=== PATIENT | male | born 1980 | race Caucasian/White ===

== ENCOUNTER 2021-07-17 15:09 | Emergency (ER) | payer BC, SELFPAY ==
[2021-07-17 15:24] VITALS: BP 136/100; PULSE 89; RESP 16; TEMP 36.6; O2SAT 98
--- NOTE | 2021-07-17 16:08 | ED.URI ---
HPI - URI/Sore Throat General Chief Complaint: Upper Respiratory Infection Stated Complaint: Sore Throat,Fatigue,Body Aches Time Seen by Provider: 07/17/21 16:00 Source: patient and RN notes reviewed Mode of arrival: ambulatory Limitations: no limitations History of Present Illness HPI Narrative: Patient presents today with a 2-day history of fatigue, body aches, nausea, diarrhea, with a 4-day history of sore throat. Denies fever, cough, congestion or rhinorrhea. Currently rates his pain 5/10 and has been taking ibuprofen with some relief. MD elicited complaint: sore throat Related Data Home Medications Medication Instructions Recorded Confirmed No Home Medications 07/17/21 07/17/21 Allergies Allergy/AdvReac Type Severity Reaction Status Date / Time No Known Allergies Allergy Mild Verified 07/17/21 16:25 Review of Systems Review of Systems: CONSTITUTIONAL: Denies fever, chills, or sweats.+ Body aches, fatigue EYES: Denies visual changes, redness, or discharge. ENT: Denies rhinorrhea, congestion, or otalgia.+ Sore throat CARDIOVASCULAR: Denies chest pain, palpitations, or edema. RESPIRATORY: Denies cough or dyspnea. GASTROINTESTINAL: Denies abdominal pain, vomiting.+ Nausea, diarrhea GENITOURINARY: Denies dysuria or hematuria. SKIN: Denies rash, itching, or wounds. MUSCULOSKELETAL: Denies back pain, joint pain, or myalgia. NEUROLOGIC: Denies headache, numbness, tingling, or weakness. PSYCH: Denies depression or anxiety. [facility] Family History Family History Mother Patient's mother is in good health Father Patient's father is in good health Sibling Patient's brother is in good health Grandparent Family history of malignant neoplasm of uterus, Onset Age: 83 Family history of dementia, Onset Age: 81 Social History Social History Smoking status: Never smoker Second hand tobacco smoke exposure: Yes Alcohol intake: current Substance use: never Substance use type: does not use Comments At time of signature, I have reviewed and agree with nursing past medical, surgical, social and family history unless otherwise noted. Please see nursing chart for further information. There is no relevant family history pertinent to the presenting complaint Exam Narrative: GENERAL: Ill-appearing, well-nourished, and in no acute distress. HEAD: Normocephalic, atraumatic. EYES: EOMI. No redness or drainage. Conjunctivae normal. ENT: Mucous membranes pink and moist. Nares clear. No rhinorrhea. TMs normal bilaterally. Throat mildly erythematous without edema or exudate. Uvula midline. NECK: Normal AROM. Supple. No lymphadenopathy. CHEST: No respiratory distress. Clear to auscultation. HEART: Regular rate and rhythm. No murmur appreciated. Normal peripheral pulses. EXTREMITIES: Normal range of motion. No edema. SKIN: Warm, dry, no rash. Capillary refill normal. Normal skin turgor. NEURO: No focal deficits. Alert and oriented x3. Gait steady. PSYCH: Normal affect. No signs of depression or anxiety. Course Course Level of Care: Express Care Visit Vital Signs Vital signs: Vital Signs Temperature 97.8 F 07/17/21 15:24 Pulse Rate 89 07/17/21 15:24 Respiratory Rate 16 07/17/21 15:24 Blood Pressure 136/100 H 07/17/21 15:24 Pulse Oximetry 98 07/17/21 15:24 Temperature 97.8 F 07/17/21 15:24 Pulse Rate 89 07/17/21 15:24 Respiratory Rate 16 07/17/21 15:24 Blood Pressure 136/100 H 07/17/21 15:24 Pulse Oximetry 98 07/17/21 15:24 Reviewed. Pt has been instructed to follow up with his PCP regarding his elevated blood pressure today. MDM - URI/Sore Throat Differential Diagnosis Differential diagnosis: Likely upper respiratory infection, viral infection, influenza, pharyngitis and other (Strep throat, influenza, COVID-19) Lab Data Attestation: I reviewed
== END 2021-07-17 16:38 | disposition home or self-care (01) ==
PROVIDERS: Emergency Provider Nurse Practitioner; PCP Physician Assistant
DX: B34.9 Viral infection, unspecified (principal); Z20.822 Contact with and (suspected) exposure to COVID-19
CPT/HCPCS: 87081; 87426; 87804; 87880; 99203; C9803; G0463

== ENCOUNTER → 2021-07-18 10:32 | Outpatient (CLI) | payer BC, SELFPAY ==
--- NOTE | ~2021-07-18 | XR_ITS ---
XR chest 2V DATE: 07/18/2021 10:48 INDICATION: Cough TECHNIQUE: 2 views COMPARISON: 06/2017 two-view chest FINDINGS: Heart size is within normal limits. No hilar or mediastinal enlargement. No pulmonary infil trate or consolidation, pleural effusion or pulmonary vascular congestion or pneumothorax is detected . Degenerative spurring of the thoracic spine. IMPRESSION: No active cardiopulmonary disease Reviewed, dictated and finalized at location A. [facility]' [employer]ENSATION MAGIST[employer]
== END ==
PROVIDERS: PCP Internal Medicine; Visit Provider Physician Assistant
DX: R05.9 Cough, unspecified (principal); R07.9 Chest pain, unspecified
CPT/HCPCS: 71046

== ENCOUNTER 2023-01-18 10:32 | Outpatient (CLI) | payer BC, SELFPAY ==
--- NOTE | ~2023-01-18 | US_ITS ---
EXAMINATION: US soft tissue lower back DATE: 01/18/2023 11:03 INDICATION: Localized swelling, mass and lump to the left of the coccyx TECHNIQUE: Multiple grayscale and Doppler ultrasound images of the region of concern left of the cocc yx were obtained. COMPARISON: None FINDINGS: 2.7 x 2.2 x 2.0 cm heterogeneously iso to hypoechoic lesion in the subcutaneous fat at the region of concern. Vascular flow seen within some vessel at the periphery of the lesion with no internal vascul ar flow on color Doppler. IMPRESSION: 1. 2.7 cm heterogeneous subcutaneous lesion at the region of concern, unclear whether solid neoplasm or complex cystic lesion. Correlate with clinical history and consider further evaluation with either ultrasound-guided biopsy or pre and postcontrast MRI. Reviewed, dictated and finalized at location L. IMPRESSION: 1. 2.7 cm heterogeneous subcutaneous lesion at the region of concern, unclear w hether solid neoplasm or complex cystic lesion. Correlate with clinical history and consider further evaluation with either ultrasound-guided biopsy or pre an d postcontrast MRI.
== END 2023-01-18 10:33 | disposition home or self-care (01) ==
PROVIDERS: PCP Physician Assistant; Visit Provider Physician Assistant
DX: L98.9 Disorder of the skin and subcutaneous tissue, unspecified (principal)
CPT/HCPCS: 76705

== ENCOUNTER 2023-01-22 15:11 | Emergency (ER) | payer BC, SELFPAY ==
[2023-01-22] VITALS (18 sets, daily range): BP systolic 103–146; BP diastolic 58–88; PULSE 73–131; RESP 20; TEMP 37.2; O2SAT 77–100
--- NOTE | 2023-01-22 17:09 | ED.SKABFB ---
HPI - Skin/Abscess/Foreign Bdy General Chief complaint: Skin/Abscess/Foreign Body Stated complaint: abscess/fever Time Seen by Provider: 01/22/23 15:31 History of Present Illness HPI narrative: Patient is a 42-year-old male presenting with a growth on his back. Patient states that he has had a bump on his lower back that turned red several weeks ago. Patient went to urgent care and was treated with Keflex and Bactrim. States that he has been taking these as prescribed. He had an ultrasound here a couple of days ago which showed a soft tissue lesion. Patient continues to have redness and swelling in this area. States that he has been having fevers up to 102 ?F at home. States that he has been having a headache as well as some body aches. Denies chest pain or shortness of breath. No cough. No vomiting or diarrhea. Denies further complaints. Related Data Home Medications Medication Instructions Recorded Confirmed esomeprazole magnesium 20 mg 20 mg PO DAILY 09/21/21 09/22/21 tablet,delayed release (Nexium 24HR) Allergies Allergy/AdvReac Type Severity Reaction Status Date / Time No Known Allergies Allergy Mild Verified 01/22/23 15:26 Review of Systems Review of Systems: All systems reviewed & are unremarkable except as noted in HPI and below PMFSH Family History Family History Mother Patient's mother is in good health Father Patient's father is in good health Sibling Patient's brother is in good health Grandparent Family history of malignant neoplasm of uterus, Onset Age: 83 Family history of dementia, Onset Age: 81 Social History Social History Smoking status: Never smoker Second hand tobacco smoke exposure: Yes Alcohol intake: current Substance use: never Substance use type: does not use Exam Narrative: GENERAL: Well-appearing, well-nourished, and in no acute distress. Pleasant and cooperative HEAD: Normocephalic, atraumatic. EYES: PERRLA and EOMI. ENT: Nares clear, no rhinorrhea or epistaxis. Mucous membranes moist. NECK: Supple. CHEST: Clear to auscultation. No respiratory distress. HEART: Regular rate and rhythm ABDOMEN: Soft, nontender, nondistended BACK: 2x2cm lesion left lower back with overlying erythema, concerning for abscess, no surrounding cellulitis, no crepitus, no midline lesions or tenderness EXTREMITIES: Normal range of motion. No edema. SKIN: Warm, dry, no rash. NEURO: No focal deficits. Alert and oriented x3. PSYCH: Normal mood and affect. Course Vital Signs Vital signs: Vital Signs Temperature 98.9 F 01/22/23 15:12 Pulse Rate 131 H 01/22/23 15:12 Respiratory Rate 20 01/22/23 15:12 Blood Pressure 146/88 H 01/22/23 15:12 Pulse Oximetry 98 01/22/23 15:12 Temperature 98.9 F 01/22/23 15:12 Pulse Rate 92 01/22/23 20:14 Respiratory Rate 20 01/22/23 15:12 Blood Pressure 120/63 01/22/23 20:14 Pulse Oximetry 100 01/22/23 20:14 MDM - Skin/Abscess/Foreign Bdy MDM Narrative Medical decision making narrative: Patient is a 42-year-old male presenting with fevers, body aches, and a red lesion on his left lower back. Ultrasound from 4 days ago reveals a complex cystic lesion vs solid neoplasm. Recommend ultrasound guided biopsy vs MRI. Spoke with Dr. Chacon - pt can f/u in clinic for biopsy. Pt needs to finish the keflex/bactrim and then will start him on augmentin BID x10d given the recurrence of erythema and possible fevers at home. Blood work is reassuring. No leukocytosis. Lactic acid is normal. Discussed the work-up and advised that he call Dr. Chacon in the morning for close follow-up. Patient and his voiced understanding and are agreeable with this plan. Strict return precautions given. Discharged in stable condition. Differential Diagnosis Differential diagnosis: Likely abscess of skin or subcuta
[2023-01-22] MEDS: SODIUM CHLORIDE 0.9% IV 1,000 ML 999 ML IV CONT (17:25)
[2023-01-22] MEDS: KETOROLAC 15 MG/ML VIAL (*BKC) IV PUSH (17:25)
[2023-01-22 17:36] LABS: Eosinophils Percent Auto 0.2 % (0-4.4); Hematocrit 40.8 % (42.0-52.0); Hemoglobin 13.8 g/dL (14.0-18.0); Immature Granulocyte Absolute 0.01 K/mm3 (0.00-0.031); Immature Granulocyte Percent A 0.2 % (0-0.5); Immature Platelet Fraction Pct 5.4 % (0.9-11.2); Lymphocytes Absolute Auto 0.36 K/mm3 (0.9-3.2); Lymphocytes Percent Auto 8.8 % (18.3-44.2); Mean Corpuscular HGB Conc 33.8 g/dl (32-36); Mean Corpuscular Hemoglobin 31.8 pg (26-34); Mean Platelet Volume 10.5 fl (7.4-10.4); Monocytes Absolute Auto 0.4 K/mm3 (0.1-0.6); Neutrophils Absolute Auto 3.3 K/mm3 (1.3-6.7); Neutrophils Percent Auto 81.8 % (45.5-73.1); Platelet Count Result 151 k/mm3 (150-375); Red Blood Count 4.34 M/mm3 (4.6-6.20); Red Cell Distribution Width 11.9 % (11.5-14.5); White Blood Count 4.1 K/mm3 (4.5-10.0)
[2023-01-22 17:44] LABS: Alanine Aminotransferase 32 U/L (6-50); Albumin Level 4.9 g/dL (3.5-5.1); Alkaline Phosphatase 61 U/L (38-126); Anion Gap 8 mmol/L (8-16); Aspartate Amino Transferase 36 U/L (17-59); Bilirubin,Total 0.7 mg/dL (0.2-1.3); Blood Urea Nitrogen 10 mg/dL (9-20); Calcium 8.8 mg/dL (8.4-10.2); Carbon Dioxide 28 mmol/L (22-30); Chloride 97 mmol/L (98-107); Estimated CRCL calculation 117 ml/min; Estimated Glomerular Filt Rate > 60; Glucose 106 mg/dL (65-110); Lactic Acid Reflex 1.2 mmol/L (0.7-2.0); Potassium 4.1 mmol/L (3.4-5.0); Sodium 133 mmol/L (137-145)
== END 2023-01-22 20:14 | disposition home or self-care (01) ==
PROVIDERS: Emergency Provider Emergency Medicine; PCP Physician Assistant
DX: L03.312 Cellulitis of back [any part except buttock and flank] (principal)
CPT/HCPCS: 36415; 80053; 83605; 85025; 85055; 87040; 96361; 96374; 99284; J1885; J7030

== ENCOUNTER 2023-02-07 04:31 | Day surgery (SDC) | payer BC, SELFPAY ==
[2023-02-05 11:30] VITALS: BMI 31.6
--- NOTE | 2023-02-05 11:34 | PC.NURSE ---
Report to the Outpatient Waiting Room, entrance under the green pavilion located off [facility], at time 1200 on date 02/07/23. Planned Procedure Time: 1400. Time changes happen often and if your time is changed the preop area will call you the afternoon before. - You and your visitor will be asked to self-screen and do not enter if you have any COVID symptoms. - A mask is optional within the hospital at this time. Patients may have clear liquids (water, carbonated beverages, clear teas, apple juice) until 3 hours prior to surgery with a maximum of 20 ounces. - No food from midnight until time of surgery Take the following medications with a SIP of water the morning of surgery: NONE DO NOT STOP ANY OF YOUR OTHER PRESCRIPTION MEDICATIONS PRIOR TO SURGERY ?EXCEPT THE FOLLOWING Medications to discontinue per physician: N/A Date to take last dose: N/A Please no make-up, nail sami, hairspray, perfume, deodorant, or body powder the day of surgery. No jewelry (including any body piercings) or valuables the day of surgery, leave them at home. Please take a shower or bath the night before, or the morning of, surgery with an antibacterial soap. Wear comfortable, loose fitting clothing. - Jewelry must be removed prior to entering the operating room. Rings and piercings that are not removed may be cut off. - The hospital will not accept responsibility for valuables. - Please leave all valuables, including medications, at home the day of surgery. If you are going home after surgery, a licensed stock driver must drive you home. - NO public transportation without another adult if you receive anesthesia. - We recommend that an adult stay with you for 24 hours following discharge. - We also recommend that you do not drive, make important decision, drink alcoholic beverages, or take any drugs that were not prescribed by your health care provider for at least 24 hours after your discharge time. Follow any additional instructions given to you from your surgeon. If you or anyone in your household have experienced Covid symptoms in the past week, please notify your surgeon or the nurse liaison at the phone number below for possible testing. Telephone instructions given to PT - CHENTE GALAVIZ and asked if any additional questions and then verbalized understanding. Patient advised to call surgeon office or pre surgery nurse liaison [phone] if any additional questions.
--- NOTE | 2023-02-06 09:57 | P.PNAN_ITS ---
Anes - Initial Pre Proc Eval Procedure: Operation Date: 02/07/23 12:30 Proposed Procedures p Incision and Drainage Infected Cyst Lower Back - Kvng Chacon MD Date/Time: 02/06/23 09:57 Surgeon: Kvng Chacon MD Pre Op Diagnosis: abcess back Patient Data Age: 42 Gender: M Height: 1.83 m Weight: 105.7 kg Allergies Allergy/AdvReac Type Severity Reaction Status Date / Time No Known Allergies Allergy Mild Verified 02/08/23 08:39 Home Medications Medication Instructions Recorded Confirmed Type esomeprazole magnesium 20 mg 20 mg PO DAILY 09/21/21 02/07/23 History tablet,delayed release (Nexium 24HR) oxycodone-acetaminophen 5 mg-325 0.5 - 1 tablet PO Q6H PRN pain #10 02/07/23 Rx mg tablet tabs Patient hx anesthesia problems: none Family hx anesthesia problems: none Results Review: All pre-operative results and documents have been reviewed as part of the pre- operative evaluation. [facility] Past Medical History Medical History GERD (gastroesophageal reflux disease) Family History Family History Mother Patient's mother is in good health Father Patient's father is in good health Sibling Patient's brother is in good health Grandparent Family history of malignant neoplasm of uterus, Onset Age: 83 Family history of dementia, Onset Age: 81 Social History Social History Smoking status: Never smoker Second hand tobacco smoke exposure: Yes Alcohol intake: current Drinks per week: 3 Substance use: never Substance use type: does not use Current Housing: Decline to Answer Concerned About Future Housing: Decline to Answer Difficulty Paying Gas/Electric Bills: Decline to Answer Difficulty Paying for Meds: Decline to Answer Currently Unemployed: Decline to Answer Education: Decline to Answer Difficulty w/ Childcare or Family Care: Decline to Answer Living arrangements: with family Spiritual care concerns: No Anes - Eval Final PreProcedure Day of Procedure 02/06/23 09:57 Patient weight: obese Heart: regular rate and rhythm Lungs: clear to auscultation Airway: Mallampati scale class II Neurological: alert and oriented Last oral intake: >/= 8 hours ASA classification: II Emergent: no Anesthetic plan: proceed Anesthesia type and monitoring: general GIVS and standard monitoring Results Review: All pre-operative results and documents have been reviewed as part of the pre- operative evaluation. Informed Consent: The patient's anesthetic plan and its attendant risks and benefits were discussed with the patient/family/POA. Questions were solicited and answers provided to the satisfaction of the patient/family/POA.
[2023-02-07 08:57] VITALS: BP 117/62; PULSE 84; RESP 16; TEMP 36.3; O2SAT 100
[2023-02-07] MEDS: LACTATED RINGERS 1,000 ML 30 ML IV CONT (09:21)
--- NOTE | 2023-02-07 09:21 | WPDHPUPDATE1 ---
History and Physical Update Update Date/Time: 02/07/23 09:21 History and Physical has been reviewed, including an updated exam of the patient. There are NO changes in the patient's condition. Risks, benefits, and alternatives have been discussed and questions answered. Patient agrees to proceed with procedure.
[2023-02-07] MEDS: ceFAZolin 2 GM/D5W 50 ML 2 GM/50 ML BAG IVPB (09:31)
[2023-02-07 10:05] VITALS: BP 126/42; PULSE 126; RESP 16; O2SAT 100
[2023-02-07] MEDS: BUPIVACAINE/EPINEPHRINE 0.25% 10 ML VIAL INFILTRATE (10:12)
--- NOTE | 2023-02-07 10:12 | W.PM.PROC2 ---
Procedure Note - Detailed Date of Procedure 02/07/23 Pre-op Diagnosis abcess back, infected inclusion cyst Post-op Diagnosis Same Procedure Performed Incision and drainage complex abscess of the back Surgeon Kvng Chacon MD Anesthesia General (G IV S) and Local (0.25% Marcaine with epinephrine) Indications Patient has had a tender swollen nodule in the left lower back about the level of the coccyx for a couple of weeks. He was treated with 2 different courses of oral antibiotics. Just a few days ago, the swollen nodule burst and purulent fluid came forth. It continues to be tender and drain purulent material. He was seen in the office and found to have an abscess in the left lower back associated with an infected inclusion cyst. It is still quite tender. He is taken to surgery now for incision and drainage. Findings Infected inclusion cyst with abscess. Most of the purulent material had already drained. There was a lot of loose infected cyst content remaining in the wound. Description of Procedure Patient was taken to surgery and anesthesia was introduced. He was placed in right lateral decubitus position. The area of the abscess was marked on the left lower back. Prep and drape was carried out. Local was infiltrated all around the area of the infection and the cyst. I probed the opening to the cyst and found the general abscess cavity. I then excised an ellipse of skin over the abscess cavity. There was cyst material and lining in the abscess cavity. The cyst material was infected. As much of the cyst was removed as possible. There was very little purulent fluid. The wound was fairly dry but was packed with 1/4 inch iodoform Nu Gauze. It was dressed with 4 x 4 gauze and Medipore tape. The patient was returned to a supine position, awakened and taken to outpatient surgery in good condition. Sponge and needle counts were correct x2. Estimated Blood Loss -2 Drains No Packing Yes (Quarter-inch iodoform Nu Gauze) Pathology None sent Complications No immediate complications Condition Stable Disposition Same day [facility] Billing Surgery - Charge Forward: Surgery Billing (Incision and drainage complex abscess of the back)
[2023-02-07 10:35] VITALS: BP 112/75; PULSE 66; RESP 16
== END 2023-02-07 10:50 | disposition home or self-care (01) ==
PROVIDERS: PCP Physician Assistant; Visit Provider Surgery
PROC: (CPT 10061; principal; 2023-02-07 12:30)
DX: L02.212 Cutaneous abscess of back [any part, except buttock and flank] (principal); K21.9 Gastro-esophageal reflux disease without esophagitis; E66.9 Obesity, unspecified; Z68.31 Body mass index [BMI] 31.0-31.9, adult
CPT/HCPCS: 10061; A9270; J0690; J2250; J2704; J3010; J7120

== ENCOUNTER 2024-02-01 00:20 | Day surgery (SDC) | payer OTHER, SELFPAY ==
[2024-01-10 15:35] VITALS: BMI 31.2
--- NOTE | 2024-01-10 15:41 | PC.NURSE ---
Report to the Outpatient Waiting Room, entrance under the green pavilion located off [facility], at time _1145_ on date _[id number]_. Planned Procedure Time: _145pm_. Time changes happen often and if your time is changed the preop area will call you the afternoon before. - You and your visitor will be asked to self-screen and do not enter if you have any COVID symptoms. - A mask is optional within the hospital at this time. Patients may have clear liquids (water, carbonated beverages, clear teas, apple juice) until 3 hours prior to surgery with a maximum of 20 ounces. - No food from midnight until time of surgery Take the following medications with a SIP of water the morning of surgery: ___None DO NOT STOP ANY OF YOUR OTHER PRESCRIPTION MEDICATIONS PRIOR TO SURGERY ?EXCEPT THE FOLLOWING Medications to discontinue per physician Multivitamin Date to take last [id number] Please no make-up, nail romanian, hairspray, perfume, deodorant, or body powder the day of surgery. No jewelry (including any body piercings) or valuables the day of surgery, leave them at home. Please take a shower or bath the night before, or the morning of, surgery with an antibacterial soap. Wear comfortable, loose fitting clothing. - Jewelry must be removed prior to entering the operating room. Rings and piercings that are not removed may be cut off. - The hospital will not accept responsibility for valuables. - Please leave all valuables, including medications, at home the day of surgery. If you are going home after surgery, a licensed home delivery driver must drive you home. - NO public transportation without another adult if you receive anesthesia. - We recommend that an adult stay with you for 24 hours following discharge. - We also recommend that you do not drive, make important decision, drink alcoholic beverages, or take any drugs that were not prescribed by your health care provider for at least 24 hours after your discharge time. Follow any additional instructions given to you from your surgeon. If you or anyone in your household have experienced Covid symptoms in the past week, please notify your surgeon or the nurse liaison at the phone number below for possible testing. Telephone instructions given to _Lucus__and asked if any additional questions and then verbalized understanding. Patient advised to call surgeon office or pre surgery nurse liaison [phone] if any additional questions.
--- NOTE | 2024-01-24 12:54 | PC.NURSE ---
Report to the Outpatient Waiting Room, entrance under the green pavilion located off [facility], at time 10:00a.m. on date 02/01/2024. Planned Procedure Time: 12:00a.m.. Time changes happen often and if your time is changed the preop area will call you the afternoon before. - You and your visitor will be asked to self-screen and do not enter if you have any COVID symptoms. - A mask is optional within the hospital at this time. Patients may have clear liquids (water, carbonated beverages, clear teas, apple juice) until 3 hours prior to surgery with a maximum of 20 ounces. - No food from midnight until time of surgery - Infants may have breast milk until 4 hours before surgery, infant formula 6 hours prior to surgery. - Children will be allowed to drink immediately following surgery. If applicable, please bring a bottle or sippy cup to assist with drinking. Juice, water, soda, and popsicles are readily available. For infants on formula, please bring formula the day of surgery. Pacifiers are allowed. Take the following medications with a SIP of water the morning of surgery: n/a DO NOT STOP ANY OF YOUR OTHER PRESCRIPTION MEDICATIONS PRIOR TO SURGERY ?EXCEPT THE FOLLOWING Medications to discontinue per physician vitamins Date to take last dose 01/29/2024 Please no make-up, nail djiboutian, hairspray, perfume, deodorant, or body powder the day of surgery. No jewelry (including any body piercings) or valuables the day of surgery, leave them at home. Please take a shower or bath the night before, or the morning of, surgery with an antibacterial soap. Wear comfortable, loose fitting clothing. Children are encouraged to wear pajamas. - Jewelry must be removed prior to entering the operating room. Rings and piercings that are not removed may be cut off. - The hospital will not accept responsibility for valuables. - Please leave all valuables, including medications, at home the day of surgery. If you are going home after surgery, a licensed trash truck driver must drive you home. - NO public transportation without another adult if you receive anesthesia. - We recommend that an adult stay with you for 24 hours following discharge. - We also recommend that you do not drive, make important decision, drink alcoholic beverages, or take any drugs that were not prescribed by your health care provider for at least 24 hours after your discharge time. For Pediatric surgeries, we recommend two adults accompany the child home. Follow any additional instructions given to you from your surgeon. If you or anyone in your household have experienced Covid symptoms in the past week, please notify your surgeon or the nurse liaison at the phone number below for possible testing. Telephone instructions given to Clay Kidd and asked if any additional questions and then verbalized understanding. Patient advised to call surgeon office or pre surgery nurse liaison [phone] if any additional questions.
--- NOTE | 2024-01-24 12:56 | PC.NURSE ---
Patient stated no new changes in health or medication. Patient called with new updated date and time for surgery
[2024-02-01] VITALS (8 sets, daily range): BP systolic 110–125; BP diastolic 44–87; PULSE 52–82; RESP 14–26; TEMP 36.2–36.5; O2SAT 99–100; BMI 31.9
--- NOTE | 2024-02-01 09:19 | WPDANESEPPF ---
Anes - Initial Pre Proc Eval Procedure: Operation Date: 02/01/24 10:30 Proposed Procedures p Excision of Posterior Neck Cyst, Excision Subcutaneous Nodule of Posterior Neck - Kvng Chacon MD Date/Time: 02/01/24 09:19 Surgeon: Kvng Chacon MD Pre Op Diagnosis: neck skin cyst, sub-q nodule of neck Patient Data Age: 43 Gender: M Height: 1.83 m Weight: 104.5 kg Allergies Allergy/AdvReac Type Severity Reaction Status Date / Time No Known Allergies Allergy Mild Verified 01/10/24 15:33 Home Medications Medication Instructions Recorded Confirmed Type esomeprazole magnesium 20 mg 20 mg PO DAILY 09/21/21 01/10/24 History tablet,delayed release (Nexium 24HR) multivitamin 1 tablet PO DAILY 01/10/24 01/10/24 History valacyclovir 1 gram tablet 2,000 mg PO Q12H PRN Cold Sores 01/10/24 01/10/24 History Patient hx anesthesia problems: none Family hx anesthesia problems: none Results Review: All pre-operative results and documents have been reviewed as part of the pre-operative evaluation. [facility] Past Medical History Medical History (Updated 02/01/24 @ 09:19 by Dariel Jacobs MD) GERD (gastroesophageal reflux disease) Obesity Surgical History Surgical History History of drainage of abscess 02/07/2023 - incisional and drainage complex abscess of back Family History Family History Mother Depression Hypertension Father Diabetes mellitus Hypertension Sibling Patient's brother is in good health Grandparent Family history of malignant neoplasm of uterus, Onset Age: 83 Family history of dementia, Onset Age: 81 Cancer Diabetes mellitus Hypertension Social History Social History Smoking status: Never smoker Second hand tobacco smoke exposure: Yes Alcohol intake: current Drinks per week: 3 Substance use: never Substance use type: does not use Do You Feel Safe in your Home?: Yes Lack of Transportation: No Lack of Food: Never True Current Housing: I Have Housing Concerned About Future Housing: No Difficulty Paying Gas/Electric Bills: No Difficulty Paying for Meds: No Currently Unemployed: No Education: Associate Degree Difficulty w/ Childcare or Family Care: No Living arrangements: with family Spiritual care concerns: No Anes - Eval Final PreProcedure Day of Procedure 02/01/24 09:19 Patient weight: obese Heart: regular rate and rhythm Lungs: clear to auscultation Airway: Mallampati scale class II Neurological: alert and oriented Last oral intake: >/= 8 hours ASA classification: II Emergent: no Anesthetic plan: proceed Anesthesia type and monitoring: general ETT and standard monitoring Results Review: All pre-operative results and documents have been reviewed as part of the pre-operative evaluation. Informed Consent: The patient's anesthetic plan and its attendant risks and benefits were discussed with the patient/family/POA. Questions were solicited and answers provided to the satisfaction of the patient/family/POA.
--- NOTE | 2024-02-01 09:28 | WPDHPUPDATE1 ---
History and Physical Update Update Date/Time: 02/01/24 09:28 History and Physical has been reviewed, including an updated exam of the patient. There are NO changes in the patient's condition. Risks, benefits, and alternatives have been discussed and questions answered. Patient agrees to proceed with procedure.
[2024-02-01] MEDS: LACTATED RINGERS 1,000 ML 30 ML IV CONT ×2 (09:30→10:57)
[2024-02-01] MEDS: ceFAZolin 2 GM/D5W 50 ML 2 GM/50 ML BAG IVPB (09:46)
[2024-02-01] MEDS: BUPIVACAINE/EPINEPHRINE 0.5% 10 ML VIAL 30 ML INFILTRATE (10:14)
--- NOTE | 2024-02-01 11:10 | W.PM.PROC2 ---
Procedure Note - Detailed Date of Procedure 02/01/24 Pre-op Diagnosis neck skin cyst, sub-q nodule of neck Post-op Diagnosis Same Procedure Performed Excision 1.5 cm subcutaneous nodule and 0.6 cm skin cyst of the neck, 1 mm margin on each lesion for a 2.4 cm excision, 11 cm layered closure of the posterior neck. Surgeon Kvng Chacon MD Compensation Intern [facility]on [facility] Anesthesia General and Local Indications Patient noted a subcutaneous posterior neck mass last June. It will get inflamed and become enlarged occasionally. He was seen in the office and found to have a subcutaneous nodule that is probably a skin cyst as well as another skin lesion that is a skin cyst. In the office the nodule measured a cm in size, the skin incision measured 0.6 cm in size. He is taken to surgery now for excision of both these lesions which are by about 8 mm of normal skin. Findings The skin cyst was very hard to see at the time of surgery but its location from the office was noted and efforts were made to excise it at surgery. Its size was measured at 0.6 cm. The subcutaneous nodule actually appeared to be larger and was 1.5 cm. There was about 8 mm of normal skin between the 2 lesions. Each of the lesions was excised with 1 mm margins. Description of Procedure The patient was checked in the preoperative holding area finding the lesions with the patient in prone position and the neck in neutral position. The subcutaneous nodule was easily palpated and the skin cyst was more difficult to palpate but did seem to be present with nodularity about 8 mm from the subcutaneous nodule and medial. Patient was then taken to surgery and induced into general anesthesia. He was placed in prone position. The neck was extended. The area of the proposed excision was marked on the skin prior to surgery. Local was infiltrated in the area of the anticipated incision and in the deeper subcutaneous tissues. Incision was made in a transversely oriented ellipse encompassing both of the subcutaneous and skin nodules. Once we were through the skin, dissection was continued and we removed subcutaneous and even some of the superficial fascia of the posterior neck musculature. Cautery was used for hemostasis. The length of the wound was 11 cm. The wound was then closed with interrupted subcutaneous suture of 3-0 Vicryl. The skin was loosely approximated with subcuticular interrupted 4-0 Vicryl suture. Skin was finally closed with a running 4-0 Monocryl skin suture. The wound was dressed with Exofin surgical adhesive. Specimen was sent to pathology in formalin. Sponge and needle counts were correct x2. Estimated Blood Loss -20 Drains No Packing No Pathology Yes (Skin lesions posterior neck most likely cysts) Complications None Condition Stable Disposition PACU [facility] Billing Surgery - Charge Forward: Surgery Billing (Excision 1.5 cm skin cyst of the neck with 1 mm margin, excision 0.6 cm skin cyst of the neck with 1 mm margin, 2.5 cm excision, 11 cm layered closure posterior neck)
== END 2024-02-01 12:38 | disposition home or self-care (01) ==
PROVIDERS: PCP Internal Medicine; Visit Provider Surgery
PROC: (CPT 12044; principal; 2024-02-01 09:30)
DX: L72.0 Epidermal cyst (principal); K21.9 Gastro-esophageal reflux disease without esophagitis
CPT/HCPCS: 12044; 11423; 88305; J0330; J0690; J1100; J2250; J2405; J2704; J3010; J7120

== ENCOUNTER 2024-11-20 13:32 | Outpatient (CLI) | payer OTHER, SELFPAY ==
--- NOTE | ~2024-11-20 | MR_ITS ---
MRI of the lumbar spine Clinical History: Radiculopathy Technique: Axial T2-weighted images, and sagittal T1-weighted, T2-weighted, and T2 fat-sat images wer e acquired. Findings: There is no fracture or subluxation lumbar spine. Vertebral bodies maintain normal height a nd alignment. No suspicious bone marrow signal abnormality seen. At L1-L2, there is no disc bulge or herniation. There is minimal facet arthropathy. No central canal stenosis or neural foraminal narrowing. At L2-L3, there is moderate degenerative distended. There is mild disc bulge with mild facet arthropa thy. No central canal stenosis. There is moderate to advanced left neural foraminal narrowing. Right neural foramen preserved. At L3-L4, there is moderate degenerative disc narrowing. There is diffuse disc bulge with mild facet arthropathy. There is no mi central canal stenosis. There is severe left neural foraminal narrowin g, and moderate to severe right neural foraminal narrowing. At L4-L5, there is minimal disc bulge with moderate facet arthropathy. No central canal stenosis. The re is mild right neural foraminal narrowing. Left neural foramen preserved. At L5-S1, there is advanced degenerative disc narrowing. There is mild disc bulge with severe facet d egenerative change. No spinal canal stenosis. There is severe right neural foraminal narrowing, and m ild to moderate left neural foraminal narrowing. Paravertebral soft tissues are unremarkable. Impression: Moderate degenerative spondylosis overall, with multilevel neural foraminal narrowing as detailed abo ve. Findings are probably worst at L3-L4. Reviewed, dictated and finalized at location . Impression: Moderate degenerative spondylosis overall, with multilevel neural foraminal yemi rowing as detailed above. Findings are probably worst at L3-L4.
== END 2024-11-20 13:33 | disposition home or self-care (01) ==
LOC: MICIMG 13:33
PROVIDERS: PCP Internal Medicine; Visit Provider Nurse Practitioner Family
DX: M54.16 Radiculopathy, lumbar region (principal)
CPT/HCPCS: 72148

== ENCOUNTER 2024-12-03 16:23 | Emergency (ER) | payer OTHER, SELFPAY ==
--- NOTE | ~2024-12-03 | XR_ITS ---
HISTORY: right lower side back pain-twist injury COMPARISON: Reference is made to an MRI examination of the lumbar spine dated 11/20/2024 which demonstr ated multilevel neural foraminal narrowing with the most severe findings at the level of L3/L4 TECHNIQUE: 2 view lumbar spine. FINDINGS: Lumbar vertebral bodies are normally aligned. There are 5 non-rib bearing lumbar vertebral bodies. Disc space narrowing is identified at the levels of L1/L2, L3/L4, and L5/S1. Remaining disc spaces and vertebral body heights are otherwise well maintained. There are no lytic or sclerotic lesions. Paraspinal soft tissues are unremarkable Significant facet arthropathy is also noted. IMPRESSION: Degenerative disease, without acute fracture. Reviewed, dictated and finalized at location A.
--- NOTE | 2024-12-03 16:25 | ED.BACK ---
HPI - Back Pain/Injury General Chief Complaint: Back Pain/Injury Stated Complaint: Back Pain Time Seen by Provider: 12/03/24 16:24 Source: patient Mode of arrival: ambulatory Limitations: no limitations History of Present Illness HPI Narrative: Clay is a 44-year-old male patient presenting to the clinic today with complaints of right-sided low back pain. He reports he was lifting 105-110 lb box of rocks going into work when he twisted to get into the door and injured his right lower back. He dropped box at that time. States that the pain was stabbing initially however now it is just a dull ache. Did have some radiation of pain initially into the right lower extremity that has resolved. Denies any saddle anesthesia or loss of bowel or bladder. Rates his pain currently a 12/23. Related Data Home Medications ?Medication ?Instructions ?Recorded ?Confirmed ?Last Taken ?Type esomeprazole magnesium 20 mg 20 mg PO DAILY 09/21/21 12/03/24 02/06/23 History tablet,delayed release (Nexium 24HR) multivitamin 1 tablet PO DAILY 01/10/24 12/03/24 Unknown History hydroxychloroquine 200 mg tablet mg PO 12/03/24 Unknown History Allergies Allergy/AdvReac Type Severity Reaction Status Date / Time No Known Allergies Allergy Mild Verified 12/03/24 16:42 Review of Systems Review of Systems: Pertinent positives per HPI. Patient denies any fever, chills, rash, headache, visual changes, dizziness, cough, runny nose, sore throat, shortness of breath, chest pain, palpitations, nausea, vomiting, diarrhea, constipation, abdominal pain, or any urinary issues. [facility] Past Medical History Medical History Obesity GERD (gastroesophageal reflux disease) Surgical History Surgical History Hx of excision of mass Excision 1.5 cm subcutaneous nodule and 0.6 cm skin cyst of the neck, 1 mm margin on each lesion for a 2.4 cm excision, 11 cm layered closure of the posterior neck 02/01/24 History of drainage of abscess 02/07/2023 - incisional and drainage complex abscess of back Family History Family History Mother Depression Hypertension Father Diabetes mellitus Hypertension Sibling Patient's brother is in good health Grandparent Family history of malignant neoplasm of uterus, Onset Age: 83 Family history of dementia, Onset Age: 81 Cancer Diabetes mellitus Hypertension Social History Social History Smoking status: Never smoker Second hand tobacco smoke exposure: Yes Alcohol intake: current Drinks per week: 3 Substance use: never Substance use type: does not use Do You Feel Safe in your Home?: Yes Lack of Transportation: No Lack of Food: Never True Current Housing: I Have Housing Concerned About Future Housing: No Difficulty Paying Gas/Electric Bills: No Difficulty Paying for Meds: No Currently Unemployed: No Education: Associate Degree Difficulty w/ Childcare or Family Care: No Living arrangements: with family Spiritual care concerns: No Comments At the time of my signature, I reviewed and agree with the nursing past medical, surgical, social, and family history. There is no relevant family history pertinent to the patient complaint. Exam Narrative: General: Well-developed, overweight, in no apparent distress Head: Normocephalic, atraumatic. Cardio: Regular rate and rhythm, s1 and s2 normal, no murmur appreciated. Resp: Clear to auscultation bilaterally, no rhonchi, rales, wheezing or rubs. Musculoskeletal: No deformity, tender to palpation over the right lower back, grossly normal range of motion, muscle strength strong and equal in BLE. SLT negative, patellar reflexes 2/4 bilaterally, negative foot drop, normal gait and station Course Course Emergency Course: Portions of this record may have been created with voice recognition software. Level of Care: Express Care Visit Vital Signs Vital signs: Vital Signs Temperature 36.7 C 12/03/24 16:35 Pulse Rate 71 12/03/24 16:35 Respiratory Rate 16 12/03/24 16:35 Blood Pressure 141/94 H 12/03/24 16:35 Pulse Oximetry 100 12/03/24 16:35 Temperature 36.7 C 12/03/24 16:35 Pulse Rate 71 12/03/24 16:35 Respiratory Rate 16 12/03/24 16:35 Blood Pressure 141/94 H 12/03/24 16:35 Pulse Oximetry 100 05/21/25 16:35 Vital signs reviewed MDM - Back Pain/Injury MDM Narrative Medical decision making narrative: At the time of visit patient is resting comfortably on the exam table. Patient appears to be nontoxic. Diagnosis: Lumbar x-ray was performed and shows some degenerative disc disease with faucet arthropathy. No acute fracture or malalignment. Plan: I suspect patient has low back pain/strain. Prescription for naproxen and cyclobenzaprine was prescribed. Will give patient a work note Supportive measures were discussed with the patient and they voiced understanding discharge instructions and agrees to treatment plan. Return precautions reviewed Differential Diagnosis Differential diagnosis: Likely lumbar radiculopathy, sciatica, strain of lumbar region, thoracic back pain and discitis Imaging Data Radiologist's impression: ITS Impressions Lumbar Spine X-Ray 12/03/24 17:19 IMPRESSION: Degenerative disease, without acute fracture. Discharge Plan Discharge Clinical Impression: Low back pain Qualifiers: Chronicity: acute Back pain laterality: right Sciatica presence: without sciatica Qualified Code(s): M54.50 - Low back pain, unspecified Lumbar strain Qualifiers: Encounter type: initial encounter Qualified Code(s): S39.012A - Strain of muscle, fascia and tendon of lower back, initial encounter Degenerative disc disease Qualifiers: Spinal region: lumbosacral Disc-related pain type: discogenic back pain only Qualified Code(s): M51.370 - Other intervertebral disc degeneration, lumbosacral region with discogenic back pain only Patient Disposition: Home Condition: Stable Instructions: Antibiotic Form, Low Back Strain (ED), Acute Low Back Pain (ED), Degenerative Disc Disease (ED) Additional Instructions: Take any prescription medication only as prescribed-naproxen and cyclobenzaprine Be mindful of sedation precautions given to you if taking a muscle relaxer. May use heat or ice to the affected area Consider massage or chiropractor adjustment if this was discussed with provider May use blue emu, lidocaine patches, or asper cream to affected area- do not apply heat or ice directly over cream- can cause burn. Complete appropriate back stretching exercises. Follow up with your PCP in 3-5 days if symptom persist. Patient Language: Nepali Prescriptions: New naproxen 500 mg tablet 500 mg PO BID PRN (Reason: pain) 7 Days Qty: 14 0RF cyclobenzaprine 10 mg tablet 10 mg PO Q8H PRN (Reason: muscle spasm) 7 Days Qty: 21 0RF No Action hydroxychloroquine 200 mg tablet PO esomeprazole magnesium [Nexium 24HR] 20 mg tablet,delayed release (DR/EC) 20 mg PO DAILY multivitamin Tablet 1 tablet PO DAILY Follow-up/Referrals: UNKNOWN,DOCTOR [Non-Staff] - Stand Alone Forms: Work/School Release IP Time of Disposition: 17:25 Quality NIHSS Nursing Documentation ED NIHSS nursing documentation: reviewed/agree
--- OUTSIDE RECORDS SUMMARY | 2024-12-03 16:25 | XMS_ITS | Clinical Summary ---
Author Organization [facility] Address [address] [place] [address] Care Team Providers Care Re Etcher Name Role Phone Bolivar Deluca MD Primary Care Provi brown Allergies No known active allergies Medications acetaminophen (TylenoL) 325 mg tablet every 6 hours [address] (NexIUM) 20 mg capsule as directed Orally 4 Active valACYclovir (VALTREX) 1 gram tablet Two tabs p.o. every 12 hours x 2 doses prn at onset of cold sore 20 tablet 2 5 Active hydroxychloroqui ne (PLAQUENIL) 200 mg tabletIndication s:Systemic lupus erythematosus, unspecified SLE type, unspecified organ involvement status (HCC) Take 1 tablet (200 mg total) by mouth daily 30 tablet 5 12/25/19 25 Active hydroxychloroqui ne (PLAQUENIL) 200 mg tabletIndication s:Systemic lupus erythematosus, unspecified SLE type, unspecified organ involvement status (HCC) Take 1 tablet (200 mg total) by mouth daily 30 tablet 5 11/25/19 25 Discontinu ed(Reorder ) Active Problems Problem Noted Date Diagnosed Date Systemic lupus erythematosus 10/30/2024 Assessment & Plan (10/30/2024 11:49 AM CDT): Orders: CRP (acute phase); Future Erythrocyte sedimentation rate; Future Comprehensive metabolic panel; Future hydroxychloroquine (PLAQUENIL) 200 mg tablet; Take 1 tablet (200 mg total) by mouth daily Acute left ankle pain 10/30/2024 Assessment & Plan (10/30/2024 11:49 AM CDT): Orders: Uric acid; Future CRP (acute phase); Future Erythrocyte sedimentation rate; Future CBC with auto differential; Future Lumbar radiculopathy 09/18/2024 Routine adult health maintenance 09/18/2024 Class 1 obesity without seri ous comorbidity with body mass index (BMI) of 32.0 to 32.9 in adult 09/18/2024 Gastroesophageal reflux disease without esophagi tis 09/18/2024 Screening for hyperlipidemia 09/18/2024 Encounters Date Type Department Care Team Description 11/02/2024 Results Follow-Up [facility] Primary Care at [address] [phone] Bolivar Deluca MD Uric acid, CRP (acute phase), Erythrocyte sedimentation rate, Additional followed-up results: 4 10/30/2024 12:00 PM CDT Lab [facility] - Outpatient Center at [address] [address] Acute left ankle pain; Systemic lupus erythematosus, unspecified SLE type, unspecified organ involvement status (HCC) 10/30/2024 11:30 AM CDT Office Visit [facility] Medical [facility] Primary Care at [address] [phone] Bolivar Deluca MD Systemic lupus erythematosus, unspecified SLE type, unspecified organ involvement status (HCC) (Primary Dx); Acute left ankle pain 09/24/2024 Orders Only [facility] Primary Care at [address] [phone] Bolivar Deluca MD 09/18/2024 9:30 AM UTILIZATION REVIEW RN Lab [facility] Outpatient Lab at [address] [phone] Obesity, Class I, BMI 30-34.9 (Primary Dx); Body mass index 32.0-32.9, adult; Screening for lipoid disorders 09/18/2024 9:27 AM UTILIZATION REVIEW RN - 09/18/2024 11:59 PM UTILIZATION REVIEW RN Hospital Encounter [address] [address] Screening for hyperlipidemia; Class 1 obesity without serious comorbidity with body mass index (BMI) of 32.0 to 32.9 in adult, unspecified obesity type Discharge Disposition: Discharge to home or self care 09/18/2024 9:00 AM UTILIZATION REVIEW RN Office Visit [facility] Primary Care at [address] [phone] Bolivar Delcua MD Routine adult health maintenance (Primary Dx); Class 1 obesity without serious comorbidity with body mass index (BMI) of 32.0 to 32.9 in adult, unspecified obesity type; Gastroesophageal reflux disease without esophagitis; Screening for hyperlipidemia 09/18/2024 Results Follow-Up [facility] Primary Care at [address] [phone] Bolivar Deluca MD Lipid panel, Comprehensive metabolic panel, eGFR from Last 3 Months Immunizations Immunization Administration Dates Next Due Influenza, Quadrivalent, Linda l Culture-based MDCK, Antibiotic Free, Intramuscular 05/01/2019 Influenza, Quadrivalent, Spl it, Preservative Free, Intramuscular 04/19/2023,04/27/2022,05/04/2021,04/15,04/25/2018 Influenza, Trivalent, Preser vative Free, Intramuscular 04/24/2024 Influenza, Unspecified 04/19/2024,04/24/2023 Tdap 07/02/2022 Surgical History Surgery Date Site/Laterality Comments WRIST FRACTURE SURGERY 07/16/2001 - 07/15/2002 Left Raza Medical History Medical History Date Comments Arthritis 03/16/2024 GERD (gastroesophageal reflux disease) 07/16/2019 Obesity Family History Medical History Relation Name Comments Arthritis Father Dajuan Hypertension Father Dajuan Hypertension Mother Priya Scoliosis Mother Priya Spondylolisthesis Mother Priya Relation Name Status Comments Father Dajuan Mother Priya Social History Tobacco Use Types Packs/Day Years Used Date Smoking Tobacco: Never Smokeless Tobacco: Never Tobacco Cessation:Counseling Given: Not Answered PHQ-2 Answer Date Recorded PHQ-2 Total Score (If total score is 3 or more points, staff should administer the PHQ-9) 0 09/18/2024 PHQ-9 Answer Date Recorded PHQ-9 Total Score 0 09/18/2024 Sex and Gender Information Value Date Recorded Sex Assigned at Not on file Legal Sex Male 12:30 PM UTILIZATION REVIEW RN Gender Identity Male 09/14/2024 11:05 AM UTILIZATION REVIEW RN Sexual Orientation Straight 09/17/2024 12 :27 PM UTILIZATION REVIEW RN Obstetrics History Last Filed Vital Signs Vital Sign Reading Time Taken Comments Blood Pressure 122/72 10/30/2024 11:25 AM CDT Pulse 88 10/30/2024 11:25 AM CDT Temperature 36.8 C (98.2 F) 10/30/2024 11:25 AM CDT Respiratory Rate - - Oxygen Saturation 96% 10/30/2024 11:25 AM CDT Inhaled Oxygen Concentration - - Weight 110.2 kg (243 lb) 10/30/2024 11:25 AM CDT Height 183.1 cm (6' 0.1 ) 10/30/2024 11:25 AM CD T Body Mass Index 32.87 10/30/2024 11:25 AM CDT Plan of Treatment Health Maintenance Due Date Last Done Comments Hepatitis C Screening 1980 Varicella Vaccines (1 of 2 - 13+ 2-dose series) 1993 Hepatitis B Screening 1998 Pneumococcal vaccine <65 (1 of 2 - PCV) 1999 Zoster Vaccine (1 of 2) 1999 Covid-19 Vaccine ( season) 2024 05/09/2022, 06/16/2021, 10/05/2020, Additional history exists Depression Screening 09/18/2025 09/18/2024, 09/19/19 25 Regular Well Visit/Exam 18-64 09/18/2025 09/18/2024 DTaP/Tdap/Td Vaccine (2 - Td or Tdap) 07/02/2032 07/02/2022 Influenza Vaccine Completed 04/24/2024, , 04/24/2023, Additional history exists HPV Vaccines Aged Out No longer eligi ble based on patient's age to complete this topic Procedures Procedure Name Priority Date/Time Associated Diagnosis Comments EGFR Routine 10/30/2024 12:06 PM CDT Systemic lupus erythematosus, unspecified SLE type, unspecified organ involvement status (HCC) DIFFERENTIAL AUTO Routine 10/30/2024 12: 06 PM CDT Acute left ankle pain COMPREHENSIVE METABOLIC PANEL Routine 10/30/2024 12:06 PM CDT Systemic lupus erythematosus, unspecified SLE type, unspecified organ involvement status (HCC) CBC WITH AUTO DIFFERENTIAL Routine 10/30/2024 12:06 PM CDT Acute left ankle pain ERYTHROCYTE SEDIMENTATION RATE Routine 10/30/2024 12:06 PM CDT Systemic lupus erythematosus, unspecified SLE type, unspecified organ involvement status (HCC) Acute left ankle pain CRP (ACUTE PHASE) Routine 10/30/2024 12: 06 PM CDT Systemic lupus erythematosus, unspecified SLE type, unspecified organ involvement status (HCC) Acute left ankle pain URIC ACID Routine 10/30/2024 12:06 PM CDT Acute left ankle pain EGFR Routine 09/18/2024 12:00 AM UTILIZATION REVIEW RN Class 1 obesity without serious comorbidity with body mass index (BMI) of 32.0 to 32.9 in adult, unspecified obesity type COMPREHENSIVE METABOLIC PANEL Routine 09/18/2024 12:00 AM UTILIZATION REVIEW RN Class 1 obesity without serious comorbidity with body mass index (BMI) of 32.0 to 32.9 in adult, unspecified obesity type LIPID PANEL Routine 09/18/2024 12:00 AM UTILIZATION REVIEW RN Screening for hyperlipidemia from Last 3 Months Results * eGFR (10/30/2024 12:06 PM CDT) eGFR >90 >=60 mL/min/1. 73 m2 Comment: Interpretive Data Reference Interval Normal >/= 90 mL/min/1.73m2 Mildly decreased* 60 - 89 mL/min/1.73m2 Mildly to moderately decreased 45 - 59 mL/min/1.73m2 Moderately to severely decreased 30 - 44 mL/min/1.73m2 Severely decreased 15 - 29 mL/min/1.73m2 Kidney Failure < 15 mL/min/1.73m2 *Relative to young adult level Estimated glomerular filtration rate is determined by the 2020 CKD-EPI equation recommended by the National Kidney Foundation (A Unifying Approach to GFR Estimation: Recommendations of the NKF-ASK Task Force on Reassessing the Inclusion of Race in Diagnosing Kidney Disease, JASN 2020). The CKD-EPI equation should not be used for patients with unstable renal function and has not been validated in children and those over 70. Current interpretive data was last reviewed 2021. Testing performed by: [address] [address] Blood 10/30/2024 12:0 6 PM CDT 10/30/2024 8:01 PM CDT us Bolivar Deluca MD LAB BLOOD ORDERABLE S Final Result JJ [address] Department [place] [address] * Differential, auto (10/30/2024 12:06 PM CDT) Pathologist [facility] Neutrophil abs 2.28 1.50 - 6.50 K/cumm Comment:Testing performed by : [address] [address] Imm gran abs 0.01 0.00 - 0.10 K/cumm JJ Comment:Testing performed by : [address], [address] Lymphocyte abs 0.85 0.80 - 3.30 K/cumm JJ Comment:Testing performed by : [address], [address] Monocyte abs 0.65 0.20 - 0.80 K/cumm CERNER CH Comment:Testing performed by : [facility], [address] [place] [address]., [address] Eosinophil abs 0.04 0.00 - 0.50 K/cumm CERNER CH Comment:Testing performed by : [facility], [address] [place] [address]., [address] Basophil abs 0.01 0.00 - 0.10 K/cumm CERNER CH Comment:Testing performed by : [facility], [address] [place] [address]., [address] Neutrophil pct 59.4 % CERNER CH Comment: Interpretive Data Percent cell count reference ranges are not reported, since discordance with absolute values may lead to misinterpretation of CBC data. Current Interpretive Data was last revised on 2017. Testing performed by: [facility], [address] [place] [address]., [address] Imm gran pct 0.3 % CERNER CH Comment: Interpretive Data Percent cell count reference ranges are not reported, since discordance with absolute values may lead to misinterpretation of CBC data. Current Interpretive Data was last revised on 2017. Testing performed by: [address] [address] Lymphocyte pct 22.1 % CERNER CH Comment: Interpretive Data Percent cell count reference ranges are not reported, since discordance with absolute values may lead to misinterpretation of CBC data. Current Interpretive Data was last revised on 2017. Testing performed by: [address] [address] Monocyte pct 16.9 % CERNER CH Comment: Interpretive Data Percent cell count reference ranges are not reported, since discordance with absolute values may lead to misinterpretation of CBC data. Current Interpretive Data was last revised on 2017. Testing performed by: [address] [address] Eosinophil pct 1.0 % CERNER CH Comment: Interpretive Data Percent cell count reference ranges are not reported, since discordance with absolute values may lead to misinterpretation of CBC data. Current Interpretive Data was last revised on 2017. Testing performed by: [address] [address] Basophil pct 0.3 % CERNER CH Comment: Interpretive Data Percent cell count reference ranges are not reported, since discordance with absolute values may lead to misinterpretation of CBC data. Current Interpretive Data was last revised on 2017. Testing performed by: [address] [address] Blood 10/30/2024 12:0 6 PM CDT 10/30/2024 5:43 PM CDT Bolivar Deluca MD LAB BLOOD ORDERABLE S Final Result [address] Department [place] [address] * CBC with auto differential (10/30/2024 12:06 PM CDT) WBC 3.84 3.80 - 9.90 K/cumm Comment:Testing performed by : [address], [address] Hgb 14.3 13.0 - 17.5 g/dL [facility] Comment:Testing performed by : [address], [address] Hct 43.5 38.9 - 50.3 % CERNER Comment:Testing performed by : [address] [address] Plt 168 150 - 400 K/cumm CERNER Comment:Testing performed by : [address], [address] MPV 11.0 9.1 - 12.3 fL CERNER Comment:Testing performed by : [address], [address] RBC 4.61 4.30 - 5.80 M/cumm CERNER CH Comment:Testing performed by : [address], [address] MCV 94.4 81.3 - 96.4 fL CERNER CH Comment:Testing performed by : [address], [address] MCH 31.0 27.1 - 33.3 pg CERNER CH Comment:Testing performed by : [address] [place]., [address] MCHC 32.9 32.3 - 35.7 g/dL JJ Comment:Testing performed by : [facility], [address] [place] [address]., [address] RDW CV 12.1 11.1 - 14.9 % JJ Comment:Testing performed by : [facility], [address] [place] [address]., [address] RDW SD 42.3 35.7 - 48.1 fL JJ Comment:Testing performed by : [facility], [address] [place] [address]., [address] NRBC abs 0.00 0.00 - 0.01 K/cumm JJ Comment:Testing performed by : [facility], [address] [place] [address]., [address] Blood 10/30/2024 12:0 6 PM CDT 10/30/2024 5:43 PM CDT Bolivar Deluca MD LAB BLOOD ORDERABLE S Final Result Performing Organization Address City/[facility]/ZIP Co de Phone Number JJ MUNOZ [address] [address] [place] [place] [address] * (ABNORMAL) Erythrocyte sedimentation rate (10/30/2024 12:06 PM CDT) Pathologist [facility] Erythrocyte sedimentation rate 80(H) 1 - 15 mm/hr Comment:Testing performed by : [facility], [facility], [place], [address] Blood 10/30/2024 12:0 6 PM CDT 10/30/2024 5:43 PM CDT Bolivar Deluca MD LAB BLOOD ORDERABLE S Final Result JJ MUNOZ [address] [address] [place] [address] * CRP (acute phase) (10/30/2024 12:06 PM CDT) Pathologist [facility] CRP <3.0 <=10.0 mg/L Comment:Testing performed by : [facility], [address] [place] [address]., [id number] Blood 10/30/2024 12:0 6 PM CDT 10/30/2024 5:43 PM CDT Bolivar Deluca MD LAB BLOOD ORDERABLE S Final Result Performing Organization Address [facility] Co de Phone Number JJ [address] [facility] [place] [address] * Uric acid (10/30/2024 12:06 PM CDT) Uric acid 4.7 3.0 - 8.0 mg/dL Comment:Testing performed by : [facility], [address] [place] [address]., [address] Blood 10/30/2024 12:0 6 PM CDT 10/30/2024 5:43 PM CDT Bolivar Deluca MD LAB BLOOD ORDERABLE S Final Result Performing Organization Address [facility] de Phone Number [facility] [address] [facility] [place] [address] * Comprehensive metabolic panel (10/30/2024 12:06 PM CDT) Sodium 139 135 - 145 mmol/L Comment:Testing performed by : [facility], [address] [place] [address]., [address] Potassium, pl 4.4 3.3 - 4.9 mmol/L CERNER CH Comment:Testing performed by : [facility], [address] [place] [address]., [address] Chloride 102 97 - 110 mmol/L CERNER CH Comment:Testing performed by : [address] [address] CO2 27 22 - 32 mmol/L CERNER CH Comment:Testing performed by : [address] [address] Anion gap 10 2 - 15 mmol/L CERNER CH Comment:Testing performed by : [address] [place]., [address] BUN 21 6 - 25 mg/dL CERNER CH Comment:Testing performed by : [address] [address] Creatinine 0.93 0.80 - 1.30 mg/dL CERNER CH Comment:Testing performed by : [address], [address] Glucose 103 70 - 199 mg/dL CERNER CH Comment: Interpretive Data Fasting glucose >/= 126 mg/dl is diagnostic for diabetes. Fasting is defined as no caloric intake for at least 8 hours. Fasting glucose between 100 mg/dl to 125 mg/dl is diagnostic of prediabetes. In a patient with classic symptoms of hyperglycemia or hyperglycemic crisis, a random glucose >/= 200 mg/dl is diagnostic for diabetes. In the absence of unequivocal hyperglycemia, results should be confirmed by repeat testing. The classification and Diagnosis of Diabetes Diabetes Care 2021; 46: S19-S40. Current interpretive data was last revised 2022. Testing performed by: [address], [address] Calcium 9.5 8.5 - 10.3 mg/dL CERNER CH Comment:Testing performed by : [address], [address] Bilirubin, total 0.5 0.1 - 1.2 mg/dL CERNER CH Comment:Testing performed by : [address], [address] Protein, pl 8.0 6.5 - 8.5 g/dL CERNER CH Comment:Testing performed by : [address], [address] Albumin 4.6 3.5 - 5.0 g/dL CERNER CH Comment:Testing performed by : [address], [address] Alk phos 69 40 - 130 Units/L CERNER CH Comment:Testing performed by : [address], [address] ALT 30 7 - 55 Units/L CERNER CH Comment:Testing performed by : [address], [address] AST 30 10 - 50 Units/L CERNER CH Comment:Testing performed by : [facility], [address] [place] [address]., [address] Blood 10/30/2024 12:0 6 PM CDT 10/30/2024 5:43 PM CDT Bolivar Deluca MD LAB BLOOD ORDERABLE S Final Result Performing Organization Address City/[facility] Co de Phone Number JJ MUNOZ [address] [facility] [place] [place] [address] * eGFR (09/18/2024 12:00 AM UTILIZATION REVIEW RN) eGFR >90 >=60 mL/min/1. 73 m2 Comment: Interpretive Data Reference Interval Normal >/= 90 mL/min/1.73m2 Mildly decreased* 60 - 89 mL/min/1.73m2 Mildly to moderately decreased 45 - 59 mL/min/1.73m2 Moderately to severely decreased 30 - 44 mL/min/1.73m2 Severely decreased 15 - 29 mL/min/1.73m2 Kidney Failure < 15 mL/min/1.73m2 *Relative to young adult level Estimated glomerular filtration rate is determined by the 2020 CKD-EPI equation recommended by the National Kidney Foundation (A Unifying Approach to GFR Estimation: Recommendations of the NKF-ASK Task Force on Reassessing the Inclusion of Race in Diagnosing Kidney Disease, JASN 2020). The CKD-EPI equation should not be used for patients with unstable renal function and has not been validated in children and those over 70. Current interpretive data was last reviewed 2021. Blood 09/18/2024 09/18/2024 1:0 7 PM UTILIZATION REVIEW RN us Bolivar Deluca MD LAB BLOOD ORDERABLE S Final Result Performing Organization Address [facility]/ZIP Co de Phone Number JJ MUNOZ [address] [facility] [place] [place] [address] * (ABNORMAL) Lipid panel (09/18/2024 12:00 AM UTILIZATION REVIEW RN) Cholesterol 193 30 - 199 mg/dL Comment: Interpretive Data Ages < or = 19 years Acceptable: <170 mg/dL Borderline high: 170-199 mg/dL High: >or= 200 mg/dL Ages > or = 20 years Desirable: <200 mg/dL Borderline high: 200-239 mg/dL High: >or= 240 mg/dL Literature References: 1. Expert Panel on Integrated Guidelines for Cardiovascular Health and Risk Reduction in Children and Adolescents. Pediatrics 2011;128:S213 2. NCEP Expert Panel. Circulation 2004;110:227 Current Interpretive Data was last revised on 2018. Triglycerides 89 <=149 mg/dL JJ Comment: Interpretive Data Ages < or = 9 years Acceptable: <75 mg/dL Borderline high: 75-99 mg/dL High: >or= 100 mg/dL Ages 10 to 20 years Acceptable: <90 mg/dL Borderline high: 90-129 mg/dL High: >or= 130 mg/dL Ages > or = 20 years Desirable: <150 mg/dL Borderline high: 150-199 mg/dL High: 200-499 mg/dL Very high: >or= 499 mg/dL Literature References: 1. Expert Panel on Integrated Guidelines for Cardiovascular Health and Risk Reduction in Children and Adolescents. Pediatrics 2011;128:S213 2. NCEP Expert Panel. Circulation 2004;110:227 Current Interpretive Data was last revised on 2018. HDL 40 >=40 mg/dL JJ MUNOZ Comment: Interpretive Data Ages < or = 19 years Acceptable: >45 mg/dL Borderline low: 40-45 mg/dL Low: <40 mg/dL Ages > or = 20 years Desirable: >or= 60 mg/dL Low: <40 mg/dL Literature References: 1. Expert Panel on Integrated Guidelines for Cardiovascular Health and Risk Reduction in Children and Adolescents. Pediatrics 2011;128:S213 2. NCEP Expert Panel. Circulation 2004;110:227 Current Interpretive Data was last revised on 2018. LDL, calculated 137(H) <=129 mg/dL JJ Comment: Interpretive Data Ages < or = 19 years Acceptable: <110 mg/dL Borderline high: 110-129 mg/dL High: >or= 130 mg/dL Ages > or = 20 years Optimal: <100 mg/dL Near optimal: 100-129 mg/dL Borderline high: 130-159 mg/dL High: >160 mg/dL Calculated using the Jose LDL-C estimating equation. This equation was implemented on 2024. Prior to this date LDL-C was estimated using the Friedewald equation. Literature References: 1. Expert Panel on Integrated Guidelines for Cardiovascular Health and Risk Reduction in Children and Adolescents. Pediatrics 2011;128:S213 2. NCEP Expert Panel. Circulation 2004;110:227 3. Jose Porter et al. SARAH Cardiol. 2019November 13;5(5):540-548. doi: 10.1001/jamacardio.2020.0013 Current Interpretive Data was last revised on 2024. Non-HDL Cholesterol 153 mg/dL CERNER Comment: Interpretive Data Ages < or = 19 years Acceptable: <120 mg/dL Borderline high: 120-144 mg/dL High: >145 mg/dL Ages > or = 20 years When triglycerides are >200 mg/dL, Non-HDL cholesterol is a secondary target of therapy with treatment goals that are 30 mg/dL greater than the LDL cholesterol target. Literature References: 1. Expert Panel on Integrated Guidelines for Cardiovascular Health and Risk Reduction in Children and Adolescents. Pediatrics 2011;128:S213 2. NCEP Expert Panel. Circulation 2004;110:227 Current Interpretive Data was last revised on 2018. Chol/HDL ratio 5 CERNER CH Blood 09/18/2024 09/18/2024 1:0 7 PM UTILIZATION REVIEW RN us Bolivar Deluca MD LAB [place]LO[place] [address] Department [place] [address] * Comprehensive metabolic panel (09/18/2024 12:00 AM UTILIZATION REVIEW RN) Sodium 137 135 - 145 mmol/L Potassium, pl 4.4 3.3 - 4.9 mmol/L CERNER CH Chloride 98 97 - 110 mmol/L CERNER CH CO2 25 22 - 32 mmol/L CERNER CH Anion gap 14 2 - 15 mmol/L CERNER CH BUN 18 6 - 25 mg/dL CERNER CH Creatinine 0.81 0.80 - 1.30 mg/dL CERNER CH Glucose 118 70 - 199 mg/dL CERNER CH Comment: Interpretive Data Fasting glucose >/= 126 mg/dl is diagnostic for diabetes. Fasting is defined as no caloric intake for at least 8 hours. Fasting glucose between 100 mg/dl to 125 mg/dl is diagnostic of prediabetes. In a patient with classic symptoms of hyperglycemia or hyperglycemic crisis, a random glucose >/= 200 mg/dl is diagnostic for diabetes. In the absence of unequivocal hyperglycemia, results should be confirmed by repeat testing. The classification and Diagnosis of Diabetes Diabetes Care 202; 46: S19-S40. Current interpretive data was last revised 2022. Calcium 9.8 8.5 - 10.3 mg/dL CERNER CH Bilirubin, total 0.7 0.1 - 1.2 mg/dL CERNER CH Protein, pl 8.3 6.5 - 8.5 g/dL CERNER CH Albumin 4.8 3.5 - 5.0 g/dL CERNER CH Alk phos 69 40 - 130 Units/L CERNER CH ALT 32 7 - 55 Units/L CERNER CH AST 37 10 - 50 Units/L CERNER CH Blood 09/18/2024 09/18/2024 1:0 7 PM UTILIZATION REVIEW RN Bolivar Deluca MD LAB [place]LOOD [place] [address] [address] [place] [address] from Last 3 Months Insurance [facility] [id number] Care Teams Re Etcher Relationship Specialty Start Date End Date Bolivar Deluca MD [address] [place] [address] PCP - General Family Practice 09/17/24
--- OUTSIDE RECORDS SUMMARY | 2024-12-03 16:25 | XMS_ITS ---
Author Organization [facility] Address [id number] [place] [address] [address] [place] [address] Care Team Providers Care Pipe Stem Repairer Name Role Phone Isrrael Anders Unavailable [phone] Encounters Encounter Location Date Provider Diagnosis [facility] [address] [facility] [address] [place] [address] 01/02/2024 Isrrael Anders Plan Of Treatment No Information Progress Notes * Clay GALAVIZDOB:1980 ([age] yo M)Acc No.[id number]:01/02/2024 Progress Notes Patient: Clay DE LOS SANTOS Provider: Isaiah Anders MD :1980 A ge:43 Y S ex:Male Date:01/02/2024 Address:[facility] [address] [id number] Subjective: * Chief Complaints: * * Medical History: Objective: * Vitals: Assessment: Plan: * Treatment: * Billing Information: * Visit Code: * Procedure Codes: * Electronic signature of Irsrael Anders MD on 12/03/2024 at 04:25 PM CDT Sign off status: Pending * Provider: Isaiha Anders MD Date: 01/02/2024 Generated for Char flaherty/Chrissy/Marianneitting on: 12/03/2024 04:25 PM CDT
--- OUTSIDE RECORDS SUMMARY | 2024-12-03 16:25 | XMS_ITS | Clinical Summary ---
Author Organization [place] [address] [facility] Address [address] [place] [address] Care Team Providers Care Business Support Assistant Name Role Phone Oren Gee PA-C Primary Care Provide r Medications valACYclovir (VALTREX) 1 gram tablet TAKE 2 TABLETS BY MOUTH EVERY 12 HOURS 01/07/2020 Active famotidine (PEPCID) 20 mg tablet Take 2 Tablets (40 mg) by mouth 2 times daily. 120 Tablet 1 03/09/2020 Active Active Problems No known active problems Family History Medical History Relation Name Comments Cardiomyopathy Father High Cholesterol Father Hypertension Father Relation Name Status Comments Father Social History Tobacco Use Types Packs/Day Years Used Date Smoking Tobacco: Never Smokeless Tobacco: Never Alcohol Use Standard Drinks/Week Comments Yes 0 (1 standard drink = 0.6 oz pur e alcohol) Sex and Gender Information Value Date Recorded Sex Assigned at Not on file Legal Sex Male 11:37 AM CDT Gender Identity Not on file Sexual Orientation Not on file Last Filed Vital Signs Vital Sign Reading Time Taken Comments Blood Pressure 120/84 03/08/2020 7:56 AM CDT Pulse 64 03/08/2020 7:56 AM CDT Temperature - - Respiratory Rate - - Oxygen Saturation - - Inhaled Oxygen Concentration - - Weight 112 kg (247 lb) 03/08/2020 7:56 AM CDT Height 180.3 cm (5' 11 ) 03/08/2020 7:56 AM CDT Body Mass Index 34.45 03/08/2020 7:56 AM CDT Plan of Treatment Health Maintenance Due Date Last Done Comments DTAP/TDAP/TD VACCINES (1 - Tdap) 1999 HEPATITIS B VACCINES (1 of 3 - 19+ 3-dose series) 1999 INFLUENZA VACCINE (#1) 2024 Preventative Visit- Commercial 07/16/2024 HPV VACCINES Aged Out No longer eligi ble based on patient's age to complete this topic Insurance BS BLUE ACCESS/TRUE BLUE PPO Care Teams Business Support Assistant Relationship Specialty Start Date End Date Oren Gee PA-C PCP - General Physician Pinball Machine Repairer 03/09/20
--- OUTSIDE RECORDS SUMMARY | 2024-12-03 16:25 | XMS_ITS | Clinical Summary ---
Author Organization [facility] Address [address] [place] [address] Care Team Providers Care Plow Mechanic Name Role Phone Unavailable Primary Care Provider Unavailabl e Source Comments [facility],non-owned Affiliates and Associated Physician Practices is amultiple site organization consisting of ambulatory clinics and hospital sitesin [place], [place]. This disclosure is being madepursuant to the Care Everywhere program and may not contain all information available regarding this patient. Last updated 18.[facility] Allergies No known active allergies Medications * Be aware that medications may not be up to date on this document. Alwaysverify current medications with the patient. No known medications Family History Medical History Relation Name Comments Hypertension Father Hypertension Mother Relation Name Status Comments Father Mother Social History Tobacco Use Types Packs/Day Years Used Date Smoking Tobacco: Never Smokeless Tobacco: Never Alcohol Use Standard Drinks/Week Comments Yes 0 (1 standard drink = 0.6 oz pur e alcohol) AUDIT-C Answer Date Recorded Q1: How often do you have a drink containing alc ohol? Monthly or less 02/11/2020 Q2: How many drinks containi ng alcohol do you have on a typical day when you are drinking? 3 or 4 02/11/2020 Frequency of Binge Drinking Not on file 01/14 Sex and Gender Information Value Date Recorded Sex Assigned at Not on file Legal Sex Male 12:53 PM CDT Gender Identity Not on file Sexual Orientation Not on file Last Filed Vital Signs Vital Sign Reading Time Taken Comments Blood Pressure 128/87 02/11/2020 2:12 PM CDT Pulse 76 02/11/2020 2:12 PM CDT Temperature 36.3 C (97.4 F) 02/11/2020 2:12 PM CDT Respiratory Rate - - Oxygen Saturation - - Inhaled Oxygen Concentration - - Weight 104.3 kg (230 lb) 02/11/2020 2:12 PM CDT Height 182.9 cm (6') 02/11/2020 2:12 PM CDT Body Mass Index 31.19 02/11/2020 2:12 PM CDT Plan of Treatment Health Maintenance Due Date Last Done Comments LIPID TESTING 1980 HIV SCREENING 1995 HEPATITIS C SCREENING 05/26/1998 DTAP/TDAP/TD VACCINES (1 - Tdap) 1999 HEPATITIS B VACCINE (1 of 3 - 19+ 3-dose series) 1999 COVID-19 VACCINE (1 - 2023-2 5 season) 2024 DEPRESSION SCREENING 07/16/2024 INFLUENZA VACCINE (Season Ended) 2025 ZOSTER VACCINE (1 of 2) 2030 HIB VACCINE Aged Out No longer eligi ble based on patient's age to complete this topic HPV VACCINE Aged Out No longer eligi ble based on patient's age to complete this topic MENINGOCOCCAL (Group B) VACC INE SHARED DECISION-MAKING Aged Out No longer eligibl e based on patient's age to complete this topic MENINGOCOCCAL GROUPS A/C/Y/W VACCINE Aged Out No longer eligible b ased on patient's age to complete this topic PNEUMOCOCCAL VACCINE Aged Out No long er eligible based on patient's age to complete this topic Insurance ANDREINA * Guarantor: DAMON GALAVIZ Account Type Relation to Patient Date of Phone Billing Address Personal/Family [address] [place] [address] [employer] SELF PAY NO INSURANCE Member Subscriber Plan / Payer (Ef fective for All Dates) Name:Africa Galavizleigh Henry Member ID:Not on file Relation to Subscriber:Not on file Name:BIBI GALAVIZAS Subscriber ID:Not on file (Home) Address: [address] [place] [address] Payer ID:Not on file Group ID:Not on file Type:Self Pay Address: [place], [place] * Guarantor: DAMON GALAVIZ Account Type Relation to Patient Date of Phone Billing Address Personal/Family [address] [place] [address] [employer] SELF PAY NO INSURANCE Member Subscriber Plan / Payer (Ef fective for All Dates) Name:Bernabe Africaleigh Henry Member ID:Not on file Relation to Subscriber:Not on file Name:DAMON GALAVIZ Subscriber ID:Not on file (Home) Address: [address] [place] [address] Payer ID:Not on file Group ID:Not on file Type:Self Pay Address: [place], [place] * Guarantor: DAMON GALAVIZ Account Type Relation to Patient Date of Phone Billing Address Personal/Family [address] [place] [address] [employer] SELF PAY NO INSURANCE Member Subscriber Plan / Payer (Ef fective for All Dates) Name:Orlando Galaviz Member ID:Not on file Relation to Subscriber:Not on file Name:DAMON GALAVIZ Subscriber ID:Not on file (Home) Address: [address] [place] [address] Payer ID:Not on file Group ID:Not on file Type:Self Pay Address: [place], [place]
--- OUTSIDE RECORDS SUMMARY | 2024-12-03 16:25 | XMS_ITS | Encounter Summary ---
Author Organization [facility] Address [address] [place] [address] Care Team Providers Care Language Therapist Name Role Phone Bolivar Deluca MD Primary Care [facility] Encounter Details Date Type Department Care Team (Late st Contact Info) Description 11/02/2024 Results Follow-Up [facility] Primary Care at [address] [place] [id number] Bolivar Deluca MD [address] [place] [address] [address] [place] [address] Uric acid, CRP (acute phase), Erythrocyte sedimentation rate, Additional followed-up results: 4 Social History Tobacco Use Types Packs/Day Years Used Date Smoking Tobacco: Never Smokeless Tobacco: Never PHQ-2 Answer Date Recorded PHQ-2 Total Score (If total score is 3 or more points, staff should administer the PHQ-9) 0 09/18/2024 PHQ-9 Answer Date Recorded PHQ-9 Total Score 0 09/18/2024 Sex and Gender Information Value Date Recorded Sex Assigned at Not on file Legal Sex Male 12:30 PM PREDICTIVE MAINTENANCE TECHNICIAN Gender Identity Male 09/14/2024 11:05 AM PREDICTIVE MAINTENANCE TECHNICIAN Sexual Orientation Straight 09/17/2024 12 :27 PM PREDICTIVE MAINTENANCE TECHNICIAN documented as of this encounter Miscellaneous Notes * Result Encounter Note - Sabina Esquivel MA - 11/03/2024 9:55 AM CDT Patient was informed. * Result Encounter Note - Sabina Esquivel MA - 11/03/2024 9:55 AM CDT LMTRC. documented in this encounter Plan of Treatment Not on file documented as of this encounter Visit Diagnoses Not on filedocumented in this encounter Care Teams Language Therapist Relationship Specialty Start Date End Date Bolivar Deluca MD [address] [address] PCP - General Family Practice 09/17/24 documented as of this encounter
--- OUTSIDE RECORDS SUMMARY | 2024-12-03 16:25 | XMS_ITS | Patient Health Record ---
Author Organization [facility] Address [address] [place] [address] Care Team Providers Care [employer] Ramp Attendant Name Role Phone Martita Isrrael Unavailable [phone] Allergies No Known Allergies Reason For Referral No Information Medications Medication SIG (Take, Route, Frequency, Duration) Notes Start Date End Date Status NexIUM 20 MG as directed Orally 04/23/2024 Active Hydroxychloroquine Sulfate 2 00 MG Oral for 30 Days Active Tylenol 325 MG 1 tablet as needed Orally every 6 hrs 04/23/2024 Active valACYclovir HCl 1 GM TAKE 2 TABLETS BY MOUTH EVERY 12 HOURS AT ONSET OF COLD SORES FOR 2 DOSES NEEDED Oral for 5 Days Active Problems Problem Type SNOMED Code ICD Code Onset Dates Problem Status W/U Status Risk Notes Problem [id number] Lumbar radiculopathy (M54.16) Active confirmed Vital Signs Heart Rate 93 /min 11/26/2024 Height-cm 182.88 cm 11/26/2024 Blood pressure diastolic 86 mm Hg 11/26/2024 Weight-kg 104.33 kg 11/26/2024 Height 6ft in 11/26/2024 Blood pressure systolic 164 mm Hg 11/26/2024 Weight 230 lbs 11/26/2024 BMI 31.19 kg/m2 11/26/2024 Encounters Encounter Location Date Provider Diagnosis [facility] [id number] [place] [address] [address] [place] [address] 01/02/2024 Isrrael Anders [facility] [address] [place] [address] [address] [place] [address] 11/26/2024 Isrrael Anders Lumbar radiculopathy M54.16 [facility] [address] [place] [address] [address] [place] [address] 04/23/2024 Isrrael Anders Degeneration of intervertebral disc of lumbar region with discogenic back pain and lower extremity pain M51.362 and Lumbar radiculopathy M54.16 [facility] [address] [place] [address] 04/21/2024 Isrrael Anders [facility] [address] [place] [address] 04/21/2024 Isrrael Anders Assessments Encounter Date Diagnosis (ICD Code) Assessment Notes Treatment Notes Treatment Clinical Notes Section Notes 04/23/2024 Lumbar radiculopathy (ICD-10 - M54.16) After discussing the benefit and risk/complication including but not limited bleeding, infection, nerve damage, allergic reaction, spinal fluid leak, paralysis, and of right paramedian L5-S1 interlaminar epidural steroid injection under fluoroscopic guidance were discussed with the patient who verbalized understanding and agrees to proceed today , the procedure was performed without any events, patient tolerated the procedure . Patient will be followed as scheduled. -There is severe pain unresponsive to at least 4 weeks of conservative medical management. (e.g., physical therapy, pharmacological therapy, exercise). -The patient has significant radicular pain, radiculopathy or neurogenic claudication with associated functional impairment, supported by physical exam and correlates with radiographic evaluation (MRI or CT). - The exam shows pain distribution along specific nerve root with corresponding sensory changes, muscle weakness, or positive nerve root irritation sign. -Clinical findings and imaging studies suggest no other obvious cause of the pain (e.g., infection, tumor, fracture) and patient has no contraindications for the procedure. -Patient will continue with active rehabilitation program, home exercise program, or functional yazdanism program. -Policy guidelines regarding number and frequency of the procedure are obeyed. This patient is currently having severe, debilitating pain that necessitates urgent treatment. The patient is highly symptomatic (Tier 3a CMS guidelines). Pain symptoms are interfering with dally activity and quality of life. Treatment options are limited. This procedure was performed based on the following criteria: -The procedure is considered minimally Invasive. -The procedure requires very limited resources to perform, including limited use of any additional PPE. -the procedure will likely prevent this patient from seeking care at the hospital emergency room or other urgent care facility. This procedure is being performed due to medical necessity and to avoid further visits to the hospital or ER. This injection is being performed after evaluation and minimization of the risk involved in order to avoid unnecessary 04/23/2024 Degeneration of intervertebral disc of lumbar region with discogenic back pain and lower extremity pain (ICD-10 - M51.362) After discussing the benefit and risk/complication including but not limited bleeding, infection, nerve damage, allergic reaction, spinal fluid leak, paralysis, and of right paramedian L5-S1 interlaminar epidural steroid injection under fluoroscopic guidance were discussed with the patient who verbalized understanding and agrees to proceed today , the procedure was performed without any events, patient tolerated the procedure . Patient will be followed as scheduled. -There is severe pain unresponsive to at least 4 weeks of conservative medical management. (e.g., physical therapy, pharmacological therapy, exercise). -The patient has significant radicular pain, radiculopathy or neurogenic claudication with associated functional impairment, supported by physical exam and correlates with radiographic evaluation (MRI or CT). - The exam shows pain distribution along specific nerve root with corresponding sensory changes, muscle weakness, or positive nerve root irritation sign. -Clinical findings and imaging studies suggest no other obvious cause of the pain (e.g., infection, tumor, fracture) and patient has no contraindications for the procedure. -Patient will continue with active rehabilitation program, home exercise program, or functional yazdanism program. -Policy guidelines regarding number and frequency of the procedure are obeyed. This patient is currently having severe, debilitating pain that necessitates urgent treatment. The patient is highly symptomatic (Tier 3a CMS guidelines). Pain symptoms are interfering with dally activity and quality of life. Treatment options are limited. This procedure was performed based on the following criteria: -The procedure is considered minimally Invasive. -The procedure requires very limited resources to perform, including limited use of any additional PPE. -the procedure will likely prevent this patient from seeking care at the hospital emergency room or other urgent care facility. This procedure is being performed due to medical necessity and to avoid further visits to the hospital or ER. 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 L-spine MRI imaging study has been reviewed and updated with the patient , and all the questions have been answered with satisfaction Resume home exercise and personal training , PT also has been discssused After discussing the benefit and risk/complication including but not limited bleeding, infection, nerve damage, allergic reaction, spinal fluid leak, paralysis, and of right paramedian L5-S1 interlaminar epidural steroid injection under fluoroscopic guidance were discussed with the patient who verbalized understanding and agrees to proceed today , the procedure was performed without any events, patient tolerated the procedure . Patient will be followed as scheduled. -There is severe pain unresponsive to at least 4 weeks of conservative medical management. (e.g., physical therapy, pharmacological therapy, exercise). -The patient has significant radicular pain, radiculopathy or neurogenic claudication with associated functional impairment, supported by physical exam and correlates with radiographic evaluation (MRI or CT). - The exam shows pain distribution along specific nerve root with corresponding sensory changes, muscle weakness, or positive nerve root irritation sign. -Clinical findings and imaging studies suggest no other obvious cause of the pain (e.g., infection, tumor, fracture) and patient has no contraindications for the procedure. -Patient will continue with active rehabilitation program, home exercise program, or functional yazdanism program. -Policy guidelines regarding number and frequency of the procedure are obeyed. This patient is currently having severe, debilitating pain that necessitates urgent treatment. The patient is highly symptomatic (Tier 3a CMS guidelines). Pain symptoms are interfering with dally activity and quality of life. Treatment options are limited. This procedure was performed based on the following criteria: -The procedure is considered minimally Invasive. -The procedure requires very limited resources to perform, including limited use of any additional PPE. -the procedure will likely prevent this patient from seeking care at the hospital emergency room or other urgent care facility. This procedure is being performed due to medical necessity and to avoid further visits to the hospital or ER. This injection is being performed after evaluation and minimization of the risk involved in order to avoid unnecessary. 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 L-spine MRI imaging study has been reviewed and updated with the patient , and all the questions have been answered with satisfaction Resume home exercise and personal training , PT also has been discssused After discussing the benefit and risk/complication including but not limited bleeding, infection, nerve damage, allergic reaction, spinal fluid leak, paralysis, and of right paramedian L5-S1 interlaminar epidural steroid injection under fluoroscopic guidance were discussed with the patient who verbalized understanding and agrees to proceed today , the procedure was performed without any events, patient tolerated the procedure . Patient will be followed as scheduled. -There is severe pain unresponsive to at least 4 weeks of conservative medical management. (e.g., physical therapy, pharmacological therapy, exercise). -The patient has significant radicular pain, radiculopathy or neurogenic claudication with associated functional impairment, supported by physical exam and correlates with radiographic evaluation (MRI or CT). - The exam shows pain distribution along specific nerve root with corresponding sensory changes, muscle weakness, or positive nerve root irritation sign. -Clinical findings and imaging studies suggest no other obvious cause of the pain (e.g., infection, tumor, fracture) and patient has no contraindications for the procedure. -Patient will continue with active rehabilitation program, home exercise program, or functional yazdanism program. -Policy guidelines regarding number and frequency of the procedure are obeyed. This patient is currently having severe, debilitating pain that necessitates urgent treatment. The patient is highly symptomatic (Tier 3a CMS guidelines). Pain symptoms are interfering with dally activity and quality of life. Treatment options are limited. This procedure was performed based on the following criteria: -The procedure is considered minimally Invasive. -The procedure requires very limited resources to perform, including limited use of any additional PPE. -the procedure will likely prevent this patient from seeking care at the hospital emergency room or other urgent care facility. This procedure is being performed due to medical necessity and to avoid further visits to the hospital or ER. This injection is being performed after evaluation and minimization of the risk involved in order to avoid unnecessary. 04/23/2024 Other Body Mass Index: Care Instructions material was published, High Blood Pressure: Care Instructions material was published After discussing the benefit and risk/complication including but not limited bleeding, infection, nerve damage, allergic reaction, spinal fluid leak, paralysis, and of right paramedian L5-S1 interlaminar epidural steroid injection under fluoroscopic guidance were discussed with the patient who verbalized understanding and agrees to proceed today , the procedure was performed without any events, patient tolerated the procedure . Patient will be followed as scheduled. -There is severe pain unresponsive to at least 4 weeks of conservative medical management. (e.g., physical therapy, pharmacological therapy, exercise). -The patient has significant radicular pain, radiculopathy or neurogenic claudication with associated functional impairment, supported by physical exam and correlates with radiographic evaluation (MRI or CT). - The exam shows pain distribution along specific nerve root with corresponding sensory changes, muscle weakness, or positive nerve root irritation sign. -Clinical findings and imaging studies suggest no other obvious cause of the pain (e.g., infection, tumor, fracture) and patient has no contraindications for the procedure. -Patient will continue with active rehabilitation program, home exercise program, or functional yazdanism program. -Policy guidelines regarding number and frequency of the procedure are obeyed. This patient is currently having severe, debilitating pain that necessitates urgent treatment. The patient is highly symptomatic (Tier 3a CMS guidelines). Pain symptoms are interfering with dally activity and quality of life. Treatment options are limited. This procedure was performed based on the following criteria: -The procedure is considered minimally Invasive. -The procedure requires very limited resources to perform, including limited use of any additional PPE. -the procedure will likely prevent this patient from seeking care at the hospital emergency room or other urgent care facility. This procedure is being performed due to medical necessity and to avoid further visits to the hospital or ER. This injection is being performed after evaluation and minimization of the risk involved in order to avoid unnecessary Plan Of Treatment No Information Insurance Providers Payer Name Payer Address Payer Phone Subscriber Number Group Number Insured Name Patient Relationship to Insured Coverage Start Date Coverage End Date [employer] [address] [place] [address] [id number] i [id number] Clay Kidd Self - patient is the insured Medications Administered Medication Instructions Date of Administration Dosage Notes Lumb / Sacro Interlaminar Epidural 04/23/2024 Lumb / Sacro Interlaminar Epidural 11/26/2024 L5-S1 LES
--- OUTSIDE RECORDS SUMMARY | 2024-12-03 16:25 | XMS_ITS | Referral Summary ---
Author Organization [facility] Address [address] [place] [address] Care Team Providers Care Coagulating Bath Operator Name Role Phone Bolivar Deluca MD Primary Care Provi brown Encounters Date Type Department Care Team Description 11/02/2024 Results Follow-Up [facility] Primary Care at [address] [phone] Bolivar Deluca MD Uric acid, CRP (acute phase), Erythrocyte sedimentation rate, Additional followed-up results: 4 10/30/2024 12:00 PM CDT Lab [facility] Outpatient Lab - Outpatient Center at [address] [id number] Acute left ankle pain; Systemic lupus erythematosus, unspecified SLE type, unspecified organ involvement status (HCC) 10/30/2024 11:30 AM CDT Office Visit [facility] Medical [facility] Primary Care at [address] [phone] Bolivar Deluca MD Systemic lupus erythematosus, unspecified SLE type, unspecified organ involvement status (HCC) (Primary Dx); Acute left ankle pain 09/24/2024 Orders Only [facility] Primary Care at [address] [place] [phone] Bolivar Deluca MD 09/18/2024 Results Follow-Up [facility] Primary Care at [address] [phone] Bolivar Deluca MD Lipid panel, Comprehensive metabolic panel, eGFR 09/18/2024 9:27 AM CARBON PAPER MACHINE OPERATOR - 09/18/2024 11:59 PM CARBON PAPER MACHINE OPERATOR Hospital Encounter [address] [address] Screening for hyperlipidemia; Class 1 obesity without serious comorbidity with body mass index (BMI) of 32.0 to 32.9 in adult, unspecified obesity type Discharge Disposition: Discharge to home or self care 09/18/2024 9:30 AM CARBON PAPER MACHINE OPERATOR Lab [facility] Outpatient Lab at [address] [phone] Obesity, Class I, BMI 30-34.9 (Primary Dx); Body mass index 32.0-32.9, adult; Screening for lipoid disorders 09/18/2024 9:00 AM CARBON PAPER MACHINE OPERATOR Office Visit [facility] Primary Care at [address] [phone] Bolivar Deluca MD Routine adult health maintenance (Primary Dx); Class 1 obesity without serious comorbidity with body mass index (BMI) of 32.0 to 32.9 in adult, unspecified obesity type; Gastroesophageal reflux disease without esophagitis; Screening for hyperlipidemia from Last 3 Months Allergies No known active allergies Medications acetaminophen [...] mg total) by mouth daily 30 tablet 05/12/25/19 25 Active hydroxychloroqui ne (PLAQUENIL) 200 mg [...] esophagi tis 09/18/2024 Screening for hyperlipidemia 09/18/2024 Immunizations Immunization Administration Dates Next Due Influenza, Quadrivalent, Linda l Culture-based MDCK, Antibiotic Free, Intramuscular 05/01/2019 Influenza, Quadrivalent, Spl it, Preservative Free, Intramuscular 04/19/2023,04/27/2022,05/04/2021,04/15,04/25/2018 Influenza, Trivalent, Preser vative Free, Intramuscular 04/24/2024 Influenza, Unspecified 04/19/2024,04/24/2023 Tdap 07/02/2022 Social History Tobacco Use Types Packs/Day Years [...] on file Legal Sex Male 12:30 PM CARBON PAPER MACHINE OPERATOR Gender Identity Male 09/14/2024 11:05 AM CARBON PAPER MACHINE OPERATOR Sexual Orientation Straight 09/17/2024 12 :27 PM CARBON PAPER MACHINE OPERATOR Last Filed Vital Signs Vital Sign Reading [...] 10/30/2024 11:25 AM CDT Plan of Treatment Not on file Procedures Procedure Name Priority Date/Time Associated Diagnosis [...] ankle pain EGFR Routine 09/18/2024 12:00 AM CARBON PAPER MACHINE OPERATOR Class 1 obesity without serious comorbidity with body mass index (BMI) of 32.0 to 32.9 in adult, unspecified obesity type COMPREHENSIVE METABOLIC PANEL Routine 09/18/2024 12:00 AM CARBON PAPER MACHINE OPERATOR Class 1 obesity without serious comorbidity with body mass index (BMI) of 32.0 to 32.9 in adult, unspecified obesity type LIPID PANEL Routine 09/18/2024 12:00 AM CARBON PAPER MACHINE OPERATOR Screening for hyperlipidemia from Last 3 Months [...] was last reviewed 2021. Testing performed by: [facility], [address] [place] [address], [place]., [address] Blood 10/30/2024 12:0 6 PM CDT 10/30/2024 8:01 PM CDT us Bolivar Deluca MD LAB [place] [id number] Department [place] [address] * Differential, auto (10/30/2024 12:06 PM CDT) Neutrophil abs 2.28 1.50 - 6.50 K/cumm Comment:Testing performed by : [address] [address] Imm gran abs 0.01 0.00 - 0.10 K/cumm CERNER CH Comment:Testing performed by : [address] [address] Lymphocyte abs 0.85 0.80 - 3.30 K/cumm CERNER CH Comment:Testing performed by : [address] [address] Monocyte abs 0.65 0.20 - 0.80 K/cumm CERNER CH Comment:Testing performed by : [address] [address] Eosinophil abs 0.04 0.00 - 0.50 K/cumm CERNER CH Comment:Testing performed by : [address] [address] Basophil abs 0.01 0.00 - 0.10 K/cumm CERNER CH Comment:Testing performed by : [address] [address] Neutrophil pct 59.4 % CERNER CH Comment: Interpretive Data Percent cell count reference ranges are not reported, since discordance with absolute values may lead to misinterpretation of CBC data. Current Interpretive Data was last revised on 2017. Testing performed by: [address] [address] Imm gran pct 0.3 % CERNER CH Comment: Interpretive Data Percent cell count reference ranges are not reported, since discordance with absolute values may lead to misinterpretation of CBC data. Current Interpretive Data was last revised on 2017. Testing performed by: [address] [address] Lymphocyte pct 22.1 % CERNER CH Comment: Interpretive Data Percent cell count reference ranges are not reported, since discordance with absolute values may lead to misinterpretation of CBC data. Current Interpretive Data was last revised on 2017. Testing performed by: [address] [address] Monocyte pct 16.9 % JJ Comment: Interpretive Data Percent cell count reference ranges are not reported, since discordance with absolute values may lead to misinterpretation of CBC data. Current Interpretive Data was last revised on 2017. Testing performed by: [facility], [address] [place] [address]., [address] Eosinophil pct 1.0 % JJ Comment: Interpretive Data Percent cell count reference ranges are not reported, since discordance with absolute values may lead to misinterpretation of CBC data. Current Interpretive Data was last revised on 2017. Testing performed by: [address] [address] Basophil pct 0.3 % JJ Comment: Interpretive Data Percent cell count reference ranges are not reported, since discordance with absolute values may lead to misinterpretation of CBC data. Current Interpretive Data was last revised on 2017. Testing performed by: [address] [address] Blood 10/30/2024 12:0 6 PM CDT 10/30/2024 5:43 PM CDT Bolivar Deluca MD LAB BLOOD ORDERABLE S Final [facility] [address] Department [place] [address] * CBC with auto differential (10/30/2024 12:06 PM CDT) WBC 3.84 3.80 - 9.90 K/cumm Comment:Testing performed by : [address] [address] Hgb 14.3 13.0 - 17.5 g/dL JJ Comment:Testing performed by : [address] [address] Hct 43.5 38.9 - 50.3 % JJ Comment:Testing performed by : [address], [address] Plt 168 150 - 400 K/cumm CERNER CH Comment:Testing performed by : [facility], [address] [place] [address]., [address] MPV 11.0 9.1 - 12.3 fL CERNER CH Comment:Testing performed by : [facility], [address] [place] [address], [address] RBC 4.61 4.30 - 5.80 M/cumm CERNER CH Comment:Testing performed by : [address], [address] MCV 94.4 81.3 - 96.4 fL CERNER CH Comment:Testing performed by : [address], [address] MCH 31.0 27.1 - 33.3 pg CERNER CH Comment:Testing performed by : [address], [address] MCHC 32.9 32.3 - 35.7 g/dL CERNER CH Comment:Testing performed by : [address], [address] RDW CV 12.1 11.1 - 14.9 % CERNER CH Comment:Testing performed by : [address], [address] RDW SD 42.3 35.7 - 48.1 fL CERNER CH Comment:Testing performed by : [address], [address] NRBC abs 0.00 0.00 - 0.01 K/cumm CERNER CH Comment:Testing performed by : [address], [address] Blood 10/30/2024 12:0 6 PM CDT 10/30/2024 5:43 PM CDT us Bolivar Deluca MD LAB BLOOD ORDERABLE S Final Result [address] Department [place] [address] * (ABNORMAL) Erythrocyte sedimentation rate (10/30/2024 12:06 PM CDT) Erythrocyte sedimentation rate 80(H) 1 - 15 mm/hr Comment:Testing performed by : [facility], [facility], [place], [address] Blood 10/30/2024 12:0 6 PM CDT 10/30/2024 5:43 PM CDT us Bolivar Deluca MD LAB BLOOD ORDERABLE S Final Result Performing Organization Address City/[facility]/ZIP [place] JJ [phone] [place] [place] [address] * CRP (acute phase) (10/30/2024 12:06 PM CDT) CRP <3.0 <=10.0 mg/L Comment:Testing performed by : [address] [address] Blood 10/30/2024 12:0 6 PM CDT 10/30/2024 5:43 PM CDT Bolivar Deluca MD LAB BLOOD ORDERABLE S Final Result Performing Organization Address [facility] [place] Number JJ [phone] [address] [facility] [place] [place] [address] * Uric acid (10/30/2024 12:06 PM CDT) Uric acid 4.7 3.0 - 8.0 mg/dL Comment:Testing performed by : [address] [address] Blood 10/30/2024 12:0 6 PM CDT 10/30/2024 5:43 PM CDT us Bolivar Deluca MD LAB BLOOD ORDERABLE S Final Result Performing Organization Address City/[facility] [place] JJ [phone] [address] [place] [address] * Comprehensive metabolic panel (10/30/2024 12:06 PM CDT) Sodium 139 135 - 145 mmol/L Comment:Testing performed by : [facility], [address] [place] [address]., [address] Potassium, pl 4.4 3.3 - 4.9 mmol/L CERNER CH Comment:Testing performed by : [address] [address] Chloride 102 97 - 110 mmol/L CERNER CH Comment:Testing performed by : [address] [address] CO2 27 22 - 32 mmol/L CERNER CH Comment:Testing performed by : [facility], [address] [place] [address], [address] Anion gap 10 2 - 15 mmol/L CERNER CH Comment:Testing performed by : [facility], [address] [place] [address], [address] BUN 21 6 - 25 mg/dL CERNER CH Comment:Testing performed by : [address] [address] Creatinine 0.93 0.80 - 1.30 mg/dL CERNER CH Comment:Testing performed by : [address], [address] Glucose 103 70 - 199 mg/dL CERNER Comment: Interpretive Data Fasting glucose >/= 126 [...] was last revised 2022. Testing performed by: [address] [address] Calcium 9.5 8.5 - 10.3 mg/dL CERNER Comment:Testing performed by : [address] [address] Bilirubin, total 0.5 0.1 - 1.2 mg/dL CERNER CH Comment:Testing performed by : [address], [place]., [address] Protein, pl 8.0 6.5 - 8.5 g/dL CERNER Comment:Testing performed by : [address] [address] Albumin 4.6 3.5 - 5.0 g/dL CERNER Comment:Testing performed by : [address] [address] Alk phos 69 40 - 130 Units/L CERNER Comment:Testing performed by : [facility], [address] [place] [address]., [address] ALT 30 7 - 55 Units/L CERNER Comment:Testing performed by : [address], [address] AST 30 10 - 50 Units/L CERNER Comment:Testing performed by : [address] [address] Blood 10/30/2024 12:0 6 PM CDT 10/30/2024 5:43 PM CDT us Bolivar Deluca MD LAB BLOOD ORDERABLE S Final Result [address] Department [place] [address] * eGFR (09/18/2024 12:00 AM CARBON PAPER MACHINE OPERATOR) eGFR >90 >=60 mL/min/1. 73 m2 Comment: [...] 2021. Blood 09/18/2024 09/18/2024 1:0 7 PM CARBON PAPER MACHINE OPERATOR us Bolivar Deluca MD LAB BLOOD ORDERABLE S Final Result JJ MUNOZ [address] Department [place] [address] * (ABNORMAL) Lipid panel (09/18/2024 12:00 AM CARBON PAPER MACHINE OPERATOR) Cholesterol 193 30 - 199 mg/dL Comment: [...] on 2018. Triglycerides 89 <=149 mg/dL JJ MUNOZ Comment: Interpretive Data Ages [...] 2018. LDL, calculated 137(H) <=129 mg/dL JJ MUNOZ Comment: Interpretive Data Ages [...] NCEP Expert Panel. Circulation 2004;110:227 3. Jose M et al. SARAH Cardiol. 2020 November 13;5(5):540-548. doi: 10.1001/jamacardio.2020.0013 Current Interpretive Data was last revised on 2024. Non-HDL Cholesterol 153 mg/dL JJ MUNOZ Comment: Interpretive Data Ages [...] last revised on 2018. Chol/HDL ratio 5 JJ Blood 09/18/2024 09/18/2024 1:0 7 PM CARBON PAPER MACHINE OPERATOR us Bolivar Deluca MD LAB BLOOD ORDERABLE S Final Result Performing Organization Address City/[facility]/ZIP Co de Phone Number JJ MUNOZ [phone] Department [place] [address] * Comprehensive metabolic panel (09/18/2024 12:00 AM CARBON PAPER MACHINE OPERATOR) Sodium 137 135 - 145 mmol/L Potassium, [...] CH Blood 09/18/2024 09/18/2024 1:0 7 PM CARBON PAPER MACHINE OPERATOR Bolivar Deluca MD LAB BLOOD ORDERABLE S Final Result Performing Organization Address City/[facility]/ZIP Co de Phone Number JJ MUNOZ [phone] Department [place] [address] from Last 3 Months Insurance [facility] [id number] Care Teams Coagulating Bath Operator Relationship Specialty Start Date End Date Bolivar Deluca MD [address] [facility] [address] [place] [address] PCP - General Family Practice 09/17/24
--- OUTSIDE RECORDS SUMMARY | 2024-12-03 16:26 | XMS_ITS ---
Author Organization [facility] Address [address] [place] [address] Care Team Providers Care Shoe Sticks Repairer Name Role Phone Isrrael Anders Unavailable [phone] Allergies No Known Allergies REASON FOR VISIT L5-S1 LES Medications Medication SIG (Take, Route, Frequency, Duration) [...] DOSES NEEDED Oral for 5 Days Active Vital Signs Blood pressure systolic 164 mm Hg 11/27/19 25 Blood pressure diastolic 86 mm Hg 025 Heart Rate 93 /min 11/26/2024 Height 6ft in 11/26/2024 Weight 230 lbs 11/26/2024 BMI 31.19 kg/m2 11/26/2024 Height-cm 182.88 cm 11/26/2024 Weight-kg 104.33 kg 11/26/2024 Encounters Encounter Location Date Provider Diagnosis [facility] [id number] [place] [address] 11/26/2024 Isrrael Anders Lumbar radiculopathy M54.16 Assessments Encounter Date Diagnosis (ICD Code) Assessment Notes Treatment Notes Treatment Clinical Notes Section Notes 11/26/2024 Lumbar radiculopathy (ICD-10 - M54.16) L-spine [...] rehabilitation program, home exercise program, or functional mandaen program. -Policy guidelines regarding number and frequency [...] rehabilitation program, home exercise program, or functional mandaen program. -Policy guidelines regarding number and frequency [...] risk involved in order to avoid unnecessary. Plan Of Treatment Treatment Notes Assessment Notes Other High Blood Pressure: Care Instructions material was published, Body Mass Index: Care Instructions material was published Medications Administered Medication Instructions Date of Administration Dosage Notes Lumb / Sacro Interlaminar Epidural 11/26/2024 L5-S1 LES Progress Notes * Clay GALAVIZDOB:1980 ([age] yo M)Acc No.[id number]:11/26/2024 Patient: Clay DE LOS SANTOS Provider: Isaiah Anders MD :1980 A ge:44 Y S ex:Male Date:11/26/2024 Address:[facility] [address], [facility], [id number] Subjective: * Chief Complaints: * 1 . L5-S1 LES. * HPI: * Established Patient: Patient is here for interventional treatment as scheduled ,? imaging review and discussing further treatment plan . Patient rates current pain VAS 6/10 , pain is impairing ADLs , which has limited response to conservative treatment including medication/therapy/exercise P atient is not taking blood thinner Patient denies allergic history of IVP dye/ shellfish Patient denies antibiotics use Patient denies diabetes. Established Patient Questionnaire: 1 . Are you currently taking a Blood Thinner Medication? N o 2 . Do you have an allergy to I.V. Contrast or Shellfish? N o 3 . List any changes to medical history. (eg; Falls, Test, Scans, Blood Work, and Hospitalizations) N one 4 . Have you been exposed to anyone with COVID in the last 2 weeks? N o 5 . Have you been exposed to anyone with the FLU in the last 72 hours? N o 6 . What is your Pain Level today? (1-10, Scroll and select one) 6 7 . Where is your pain located? M id Back,Low Back,Right Leg 8 . After your last visit, what Percentage of improvement did you experience? 1 00 9 . Are you doing Physical Therapy, Chiropractic, or Massage Therapy? N o 1 0. Are you doing an at home Exercise Program? Y es 1 1. What activities or positions increase your Pain? (Scroll to select one or multiple) S itting 1 2. What activities or positions decrease your Pain? (Scroll to select one or multiple) S tanding,Walking 1 3. How would you describe your Pain? (Scroll to select one or multiple) S tabbing,Throbbing,Burning,Numbness 1 4. Are you having difficulty sleeping? Y es 1 5. When was the last time you had your blood drawn? (Please enter your best estimate) 1 6. When was your last Mammogram? (Please put N/A if you are male, for Females please put the best Estimate or Never. ) N /A 1 7. When was your last Colonoscopy? (Please put the best Estimate or Never. ) N /A 1 8. Do you need any refills on your medications today? N o 1 9. Please list ALL changes to Medications or Allergies? N one 2 0. Are you Diabetic? N o 2 1. Do you suffer from Constipation? N o Procedure Consent I nformed Consent obtained on 0 11/26/2024 * ROS: G eneral/Constitutional: Denies Change appetite. Denies Chills. Denies Fatigue. Denies Fever. Denies Lightheadedness. ENT: Denies Tinnitus. Denies Dysphagia. Ophthalmologic: Denies Blurred vision. * Medical History: * Social History: * Established Patient: S sánchez D o you smoke? N o * Medications: T aking NexIUM 20 MG Capsule Delayed Release as directed Orally , Taking Tylenol 325 MG Tablet 1 tablet as needed Orally every 6 hrs , Taking Hydroxychloroquine Sulfate 200 MG Tablet Oral , Taking valACYclovir HCl 1 GM Tablet TAKE 2 TABLETS BY MOUTH EVERY 12 HOURS AT ONSET OF COLD SORES FOR 2 DOSES NEEDED Oral , Medication List reviewed and reconciled with the patient * Allergies: N .K.D.A. Objective: * Vitals: H t: 6ft, Wt:230lbs, BP:164/86mm Hg, Pain scale:61-10, HR:93/min, BMI:31.19Index, Ht-cm: 182.88 cm, Wt-k.33 kg, Body Surface Area: 2.3. * Examination: G eneral Examination: P atient is alert and oriented to time, place, and person. No appeal distress. Vital signs are stable. Patient is afebrile. Respiration is nonlabored. No slurred speech, sitting comfortably on the chair Tenderness on the right lumbar paraspinal muscle, limited range motion of lumbar spine flexion /extension, straight leg raising test positive right side at 45 degree. Assessment: * Assessment: 1. L umbar radiculopathy - M54.16 (Primary) L-spine MRI without contrast 11/20/2024: Multilevel DDD with disc desiccation and disc bulging and disc space narrowing, lumbar spondylosis with facet arthropathy most significant at the lower spine, moderately advanced foraminal stenosis left at L2-3 and right L3-4, severe foraminal stenosis at left L3-4, severe right foraminal stenosis at L5-S1, mild to moderate at left ?L5-S1 , chronic par defect a t L5 bilaterally L-spine MRI imaging study has [...] rehabilitation program, home exercise program, or functional mandaen program. -Policy guidelines regarding number and frequency [...] risk involved in order to avoid unnecessary. Plan: * Treatment: * Procedures: Lumbar Interlaminar Epidural Steroid Injection L5-S1 with Fluoro Patient denies being on anticoagulant therapy. After obtaining informed consent, the patient was positioned prone position . Biplanar fluoroscopy was used to identify the neural spinal level at L5/S1 , The area was prepped with chloraprep . Time-out was performed to confirm patient, procedure, procedure site and dose to be injected. Sterile technique was used. A 25 gauge 1.5 inch needle was used to inject 3 mL of Preservative Free L idocaine 1% to the skin and subcutaneous tissue at this level. A 20-gauge 4 .5 inch Tuohy needle was then placed at the interspace and advanced to the midline under fluoroscopic guidance until the needle was felt to be in ligament. The C- arm was then turned to the lateral view and needle was advanced using a loss of resistance technique with air until the epidural space was encountered. After negative aspiration for heme or cerebral spinal fluid, 0.5 mL of Omnipaque c ontrast was injected into the epidural space and revealed an epidurogram with adequate rostral and caudal spread. The C-arm was then turned to the AP view and another 0.5 mL of Omnipaque w as injected after negative aspiration of heme or cerebral spinal fluid and demonstrated good epidural spread without vascular uptake. After confirmation of dye and needle placement, a mixture containing 4ml preservative free NS and 1ml preservative free depo-Medrol 80 mg/ml was injected slowly with frequent fluoroscopic views to confirm dye washing and epidural spread. The patient tolerated the procedure well. The needle was removed from the patient's back after the stylet was replaced. The patient's back was cleaned and Band-Aid was placed over the needle puncture site. The patient moved over to the stretcher and denied any neurological or sensory deficits. ? ? ? Post Procedure Note: Patient tolerated procedure well Discharge Order: May discharge patient when stable Discharge Status: P atient discharged with self and may drive self. * Therapeutic Injections: Lumb / Sacro Interlaminar Epidural given by Isrrael Anders MD * Procedure Codes: 6 2323 NJX INTERLAMINAR LMBR/SAC, Modifiers: KX * Billing Information: * Visit Code: 62172 Office Visit, Est Pt., Level 3. Modifiers: 25 * Procedure Codes: 34581 NJX INTERLAMINAR LMBR/SAC. Modifiers: KX * Electronic signature of Isrrael Anders MD on 12/03/2024 at 04:25 PM CDT Sign off status: Pending * Provider: Isaiah Anders MD Date: 0 11/26/2024 Generated for Char flaherty/Chrissy/Charlene on: 0 12/03/2024 04:25 PM CDT History and Physical Notes * HPI (History of Present Illness) Category Sub-Category Detail Notes Category Not es *Established Patient Established Patient Questionnaire: 1. Are you currently taking a Blood Thinner Medication?: No 2. Do you have an allergy to I.V. Contra st or Shellfish?: No 3. List any changes to medic al history. (eg; Falls, Test, Scans, Blood Work, and Hospitalizations): None 4. Have you been exposed to anyone with COVID in the last 2 weeks?: No 5. Have you been exposed to anyone with the FLU in the last 72 hours?: No 6. What is your Pain Level today? (1-10, Scroll and select one): 6 7. Where is your pain located?: Mid Back ,Low Back,Right Leg 8. After your last visit, wh at Percentage of improvement did you experience?: 100 9. Are you doing Physical Therapy, Chiro practic, or Massage Therapy?: No 10. Are you doing an at home Exercise Pr ogram?: Yes 11. What activities or posit ions increase your Pain? (Scroll to select one or multiple): Sitting 12. What activities or posit ions decrease your Pain? (Scroll to select one or multiple): Standing,Walking 13. How would you describe y our Pain? (Scroll to select one or multiple): Stabbing,Throbbing,Burning,Numbness 14. Are you having difficulty sleeping?: Yes 15. When was the last time y ou had your blood drawn? (Please enter your best estimate): 10/2024 16. When was your last Mammo gram? (Please put N/A if you are male, for Females please put the best Estimate or Never. ): N/A 17. When was your last Colon oscopy? (Please put the best Estimate or Never. ): N/A 18. Do you need any refills on your medi cations today?: No 19. Please list ALL changes to Medicatio ns or Allergies?: None 20. Are you Diabetic?: No 21. Do you suffer from Constipation?: No Procedure Consent Informed Consent obtained on: 11/26/2024 Examination Category Sub-Category Detail Notes Category Not es General Examination Patient is alert and oriented to time, place, and person. No appeal distress. Vital signs are stable. Patient is afebrile. Respiration is nonlabored. No slurred speech, sitting comfortably on the chair Tenderness on the right lumbar paraspinal muscle, limited range motion of lumbar spine flexion /extension, straight leg raising test positive right side at 45 degree
[2024-12-03 16:35] VITALS: BP 141/94; PULSE 71; RESP 16; TEMP 36.7; O2SAT 100
== END 2024-12-03 17:26 | disposition home or self-care (01) ==
PROVIDERS: Emergency Provider Nurse Practitioner Family
DX: S39.012A Strain of muscle, fascia and tendon of lower back, initial encounter (principal); X50.1XXA Overexertion from prolonged static or awkward postures, initial encounter; Y99.0 Civilian activity done for income or pay; M51.379 Other intervertebral disc degeneration, lumbosacral region without mention of lumbar back pain or lower extremity pain; K21.9 Gastro-esophageal reflux disease without esophagitis; E66.9 Obesity, unspecified; Z68.31 Body mass index [BMI] 31.0-31.9, adult
CPT/HCPCS: 72100; 99213; G0463